=== PATIENT | female | born 1970 | race Caucasian/White ===

== ENCOUNTER 2020-01-01 09:07 | Emergency (ER) | payer MEDICARE, MEDICAID, SELFPAY ==
[2020-01-01] VITALS (7 sets, daily range): BP systolic 119–151; BP diastolic 72–85; PULSE 68–80; RESP 20; TEMP 36.9; O2SAT 98–100
--- NOTE | ~2020-01-01 | XR_ITS ---
EXAMINATION: XR chest 1V portable DATE: 01/01/2020 09:36 INDICATION: Shortness of breath. Chest tightness. TECHNIQUE: A single frontal view of the chest was obtained. COMPARISON: Chest 2 views 05/22/2013 FINDINGS: Calcified right lung nodules are consistent with old granulomatous disease. No pleural effu martínez or pneumothorax. The heart size is normal. IMPRESSION: 1. No acute cardiopulmonary disease. Reviewed, dictated and finalized at location A.
--- NOTE | 2020-01-01 09:17 | ECG_ITS ---
Measurements Intervals [place] Rate: 72 P: 34 FL: 157 QRS: -14 QRSD: 89 T: 42 QT: 365 QTc: 400 Interpretive Statements SINUS RHYTHM BASELINE ARTIFACT- I, II, III, AVF NORMAL ECG Electronically Signed On 01-01-2020 10:14:56 CDT by Stephon Leon D.O.
--- NOTE | 2020-01-01 10:25 | ED.SOB ---
HPI - SOB/Dyspnea General Chief Complaint: Shortness of Breath/Dyspnea Stated Complaint: ST, SOB been exposed to COVID Time Seen by Provider: 01/01/20 09:21 Source: patient Mode of arrival: ambulatory Limitations: no limitations History of Present Illness HPI Narrative: This patient is a 49 year old female who presents for evaluation of chest heaviness and shortness of breath. Patient states yesterday she developed midsternal chest heaviness and shortness of breath. She reports she is feeling short of breath with exertion. She states heaviness is not as severe but she continues to feel it with exertion. She also has sore throat. She is concerned because she has had a COVID exposure. Related Data Allergies Allergy/AdvReac Type Severity Reaction Status Date / Time No Known Allergies Allergy Unverified 03/05/14 18:35 Review of Systems Review of Systems: All systems reviewed & are unremarkable except as noted in HPI and below Constitutional: Constitutional: Denies chills and Denies fever(s) ENT: Reports sore throat Cardiovascular: Cardiovascular: Reports chest pain Respiratory: Respiratory: Denies cough and Reports dyspnea Gastrointestinal: Gastrointestinal: Denies abdominal pain, Denies diarrhea, Denies nausea and Denies vomiting Musculoskeletal: Musculoskeletal: Denies myalgias and Denies muscle cramps PMFSH Past Medical History Medical History (Updated 01/01/20 @ 14:41 by Vaishali Aguilar MD) DVT (deep venous thrombosis) Kidney stone Surgical History Surgical History (Updated 01/01/20 @ 10:31 by Vaishali Aguilar MD) History of carpal tunnel surgery Family History Family History (Updated 04/28/13 @ 11:02 by DOCTOR UNKNOWN) Other Cerebrovascular accident Diabetes mellitus Family history of arthritis Family history of cardiovascular disease Hypertension Social History Social History Smoking status: Never smoker Second hand tobacco smoke exposure: No Alcohol intake: never Gender identity (if verbalized by the patient): Female Exam Narrative: Exam Narrative: GENERAL: Well-appearing, well-nourished, and in no acute distress. HEAD: Normocephalic, atraumatic EYES: PERRLA and EOMI, conjunctiva clear without discharge THROAT:Mucous membranes moist, Oropharynx normal without erythema, exudate, peritonsillar swelling or fluctuance NECK: Supple, without lymphadenopathy or mass RESPIRATORY: No respiratory distress, Airway patent, Respirations non-labored, Clear to auscultation without rales, rhonchi or wheeze HEART: Regular rate and rhythm. No murmur heard. Normal peripheral pulses. ABDOMEN: Soft, nontender, nondistended, normal active bowel sounds. No masses. No rebound or guarding, No organomegaly. EXTREMITIES: No edema, normal strength with full range of motion. SKIN: Warm, dry, normal color without rash NEURO: Alert and oriented x3. CN 2-12 grossly intact. No focal deficits. PSYCH: Normal mood and affect. Course Reevaluation(s) Reevaluation #1: I Discussed with patient that labs are unremarkable. She has been tested for COVId. She is stable for discharge. Heart score of 2. Date: 01/01/20 Time: 14:37 Vital Signs Vital signs: Vital Signs Temperature 98.5 F 01/01/20 09:17 Pulse Rate 70 01/01/20 09:17 Respiratory Rate 20 01/01/20 09:17 Blood Pressure 151/85 H 01/01/20 09:17 Pulse Oximetry 100 01/01/20 09:17 Temperature 98.5 F 01/01/20 09:17 Pulse Rate 71 01/01/20 15:26 Respiratory Rate 20 01/01/20 15:26 Blood Pressure 132/84 01/01/20 15:26 Pulse Oximetry 98 01/01/20 15:26 MDM - SOB/Dyspnea Lab Data Attestation: I reviewed the patient's lab results. Result diagrams: 01/01/20 10:51 01/01/20 10:51 Labs: Lab Results 01/01/20 01/01/20 01/01/20 Range/Units 09:42 10:51 10:51 WBC 3.9 L (4.5-10.0) K/mm3 RBC 4.82 (4.2-5.4) M/mm3 Hgb 9.6 L (12.0-15.0) g/dL Hct 34.0 L
[2020-01-01 11:02] LABS: Basophils Percent Auto 0.3 % (0.2-1.2); Eosinophils Percent Auto 0.8 % (0-4.4); Hemoglobin 9.6 g/dL (12.0-15.0); Immature Granulocyte Absolute 0.01 K/mm3 (0.00-0.031); Immature Granulocyte Percent A 0.3 % (0-0.5); Immature Platelet Fraction Pct 6.4 % (0.9-11.2); Lymphocytes Absolute Auto 0.96 K/mm3 (0.9-3.2); Lymphocytes Percent Auto 24.5 % (18.3-44.2); Mean Corpuscular HGB Conc 28.2 g/dl (32-36); Mean Corpuscular Hemoglobin 19.9 pg (26-34); Mean Corpuscular Volume 70.5 fl (80-100); Monocytes Absolute Auto 0.4 K/mm3 (0.1-0.6); Monocytes Percent Auto 9.4 % (2.6-8.5); Neutrophils Absolute Auto 2.5 K/mm3 (1.3-6.7); Neutrophils Percent Auto 64.7 % (45.5-73.1); Platelet Count Result 171 k/mm3 (150-375); Red Blood Count 4.82 M/mm3 (4.2-5.4); Red Cell Distribution Width 16.7 % (11.5-14.5); White Blood Count 3.9 K/mm3 (4.5-10.0)
[2020-01-01 11:10] LABS: Prothrombin Time 13.3 Seconds (11.1-14.7)
[2020-01-01 11:11] LABS: Partial Thromboplastin Time 23.5 SECONDS (22.3-36.8)
[2020-01-01 11:13] LABS: Anion Gap 9 mmol/L (8-16); Blood Urea Nitrogen 15 mg/dL (7-17); Calcium 8.8 mg/dL (8.4-10.2); Carbon Dioxide 23 mmol/L (22-30); Chloride 106 mmol/L (98-107); Estimated CRCL calculation 90 ml/min; Estimated Glomerular Filt Rate > 60; Glucose 93 mg/dL (65-105); Potassium 4.3 mmol/L (3.4-5.0); Sodium 138 mmol/L (137-145)
[2020-01-01 11:16] LABS: Platelet Estimate Adequate (Adequate)
[2020-01-01 11:17] LABS: Anisocytosis 1+ (NORMAL); Hypochromasia 1+ (NORMAL); Microcytosis 1+ (NORMAL); Ovalocytes 1+ (NORMAL)
[2020-01-01 11:25] LABS: Troponin I < 0.012 ng/mL (0.000-0.034)
[2020-01-01 11:29] LABS: D Dimer 0.27 ug/mL (<0.48)
[2020-01-01 14:23] LABS: Troponin I < 0.012 ng/mL (0.000-0.034)
== END 2020-01-01 15:28 | disposition home or self-care (01) ==
PROVIDERS: Emergency Provider General Practice; PCP Internal Medicine Gastroenterology
DX: R07.89 Other chest pain (principal); Z20.828 Contact with and (suspected) exposure to other viral communicable diseases; Z86.718 Personal history of other venous thrombosis and embolism; Z87.442 Personal history of urinary calculi
CPT/HCPCS: 36415; 71045; 80048; 84484; 85025; 85055; 85380; 85610; 85730; 87081; 87635; 87880; 93005; 99284; C9803; U0003

== ENCOUNTER 2021-02-13 13:47 | Outpatient (CLI) | payer MEDICARE, MEDICAID, SELFPAY ==
--- NOTE | ~2021-02-13 | MR_ITS ---
EXAMINATION: MR brain IAC wo/w con EXAM DATE: 02/13/2021 16:09 INDICATION: G35 . Multiple sclerosis. TECHNIQUE: Multi-sequential, multiplanar MR images of the brain, brainstem, internal auditory canals were obtained without contrast. Whole brain sagittal T1, axial diffusion, gradient echo (T2*), T1, T 2, FLAIR sequences obtained. High resolution coronal 3-D FIESTA, coronal T1 FSE, axial T1 FSPGR of t he internal auditory canals. Patient was then injected with 16 cc Multihance contrast intravenously. Postcontrast axial and coronal T1 weighted whole brain, axial and coronal high resolution T1 IAC seq uences obtained. Comparison is made to prior examination from 06/04/2011. FINDINGS: No evidence of mastoid or middle ear opacification. The 7th/8th cranial nerve complexes a re symmetric, normal in course and caliber. No cerebellopontine angle masses. Posterior fossa unrem arkable. There is empty sella syndrome, CSF subarachnoid space herniating into sella turcica. This was present on previous examination and is unchanged. There is stable appearance, distribution to the approximately 20-30 periventricular and subcortical w ari matter signal abnormalities, some of which involve margins of the corpus callosum and are orient ed perpendicular to the lateral ventricles, consistent with history of multiple sclerosis. No posteri or fossa signal abnormalities. There are no areas of restricted diffusion to suggest acute infarction. There is no acute hemorrhage seen on the T2*, a hemosiderin sensitive sequence. No intraparenchymal brain mass. The ventricles a re normal in size. There are no extra-axial collections. Flow voids are seen in the cerebral arteri es on the T2-weighted sequences consistent with their expected patency. The orbits are unremarkable. Soft tissue is unremarkable. There are no areas of abnormal enhancement on the postcontrast image s. IMPRESSION: Stable white matter disease consistent with quiescent multiple sclerosis. Reviewed, dictated and finalized at location A. IMPRESSION: Stable white matter disease consistent with quiescent multiple scle rosis.
--- NOTE | ~2021-02-13 | MR_ITS ---
EXAMINATION: MR cervical spine wo con EXAM DATE: 02/13/2021 16:10 INDICATION: G35 - Multiple sclerosis . TECHNIQUE: Multi-sequential, multiplanar MR images of the cervical spine were obtained without contra st. Axial T2, axial T2 MERGE sequence. Sagittal T1, T2, T2 fat saturation images also obtained. Com parison is made to prior examination from 04/29/2008. FINDINGS: There are scattered ill-defined T2 spinal cord slightly hyperintense regions without expans ion. These are less well appreciated than on prior study. Spinal cord thickness is maintained, no def inite focal regions of myelomalacia. Findings are consistent with quiescent multiple sclerosis withou t evidence of newly developed lesions compared to 2007. There is mild to moderate spondylosis at C5-6 level, mild to moderate bilateral neural foraminal sten osis and mild central canal stenosis or mildly bulging disc. Less spondylosis at other levels. There are no suspicious marrow signal abnormalities. Paraspinal soft tissue is unremarkable. IMPRESSION: Findings consistent with quiescent multiple sclerosis. Reviewed, dictated and finalized at location A.
--- NOTE | ~2021-02-13 | MR_ITS ---
EXAMINATION: MR thoracic spine wo con EXAM DATE: 02/13/2021 16:10 INDICATION: G35 - Multiple sclerosis TECHNIQUE: Multi-sequential, multiplanar MR images of the thoracic spine were obtained without contra st. Sagittal T1, T2, T2 fat saturation, axial T2 weighted images reviewed. There is no prior study for comparison. FINDINGS: Thoracic spinal cord signal intensity and morphology is normal. There are some small disc p rotrusions and bulges, without central canal or neural foraminal stenosis. There is mild to moderate mid and lower thoracic disc disease. Overall mild diffuse thoracic facet arthropathy. There are scatt ered focal signal abnormalities consistent with hemangiomata, otherwise without focal suspicious juliet ow signal abnormalities. The vertebral bodies are aligned in the AP dimension. Paraspinal soft tissue is unremarkable. IMPRESSION: 1. Mild to moderate thoracic spondylosis. 2. Normal cord signal. Reviewed, dictated and finalized at location A.
[2021-02-13 14:25] LABS: Estimated Glomerular Filt Rate > 60
== END 2021-02-13 13:48 | disposition home or self-care (01) ==
LOC: ANHIMG 13:50
PROVIDERS: PCP Internal Medicine Gastroenterology; Visit Provider Psychiatry & Neurology Neurology
DX: G35 Multiple sclerosis (principal); M47.894 Other spondylosis, thoracic region; R93.0 Abnormal findings on diagnostic imaging of skull and head, not elsewhere classified
CPT/HCPCS: 70553; 72141; 72146; A9577

== ENCOUNTER 2023-09-27 08:26 | Outpatient (CLI) | payer MEDICARE, SELFPAY ==
--- NOTE | ~2023-09-27 | MR_ITS ---
EXAMINATION: MR cervical spine wo/w con DATE: 09/27/2023 10:37 INDICATION: Multiple sclerosis. TECHNIQUE: Magnetic resonance imaging (MRI) of the cervical spine was performed without and with 17 m L MultiHance intravenous contrast. COMPARISON: Cervical spine MRI 02/13/2021 FINDINGS: There is 6 degrees dextrocurvature of the cervicothoracic spine. Vertebral body heights are normal. There is severely decreased disc height at C5-6. There are multiple areas of ill-defined inc reased T2 signal intensity in the cervical spinal cord. The following disc levels are specifically di scussed: C2-C3: The disc does not extend beyond the endplate margin. There is mild left uncovertebral joint os teoarthritis. There is mild right facet joint osteoarthritis. There is mild left neural foraminal denia nosis. There is no central canal stenosis. C3-C4: There is a central extrusion. There is mild bilateral uncovertebral joint osteoarthritis. Ther e is severe bilateral facet joint osteoarthritis. There is mild bilateral neural foraminal stenosis. There is no central canal stenosis. C4-C5: The disc does not extend beyond the endplate margin. There is no uncovertebral joint osteoarth ritis. There is moderate right and severe left facet joint osteoarthritis. There is no neural foramin al stenosis. There is no central canal stenosis. C5-C6: The disc is bulging. There is moderate right and severe left uncovertebral joint osteoarthriti s. There is severe bilateral facet joint osteoarthritis. There is mild right and moderate left neural foraminal stenosis. There is mild central canal stenosis. C6-C7: There is a central extrusion. There is mild bilateral uncovertebral joint osteoarthritis. Ther e is mild bilateral facet joint osteoarthritis. There is no neural foraminal stenosis. There is mild central canal stenosis. C7-T1: The disc does not extend beyond the endplate margin. There is no uncovertebral joint osteoarth ritis. There is mild bilateral facet joint osteoarthritis. There is no neural foraminal stenosis. The re is no central canal stenosis. IMPRESSION: 1. Stable spinal cord lesions, consistent with multiple sclerosis. 2. Severe spondylosis at C5-C6 and mild spondylosis at other levels. Reviewed, dictated and finalized at location E.
--- NOTE | ~2023-09-27 | MR_ITS ---
EXAMINATION: MR thoracic spine wo/w con DATE: 09/27/2023 10:37 INDICATION: Multiple sclerosis. TECHNIQUE: Magnetic resonance imaging (MRI) of the thoracic spine was performed without and with 17 m L MultiHance intravenous contrast. COMPARISON: Thoracic spine MRI 02/13/2021 FINDINGS: There is 7 degrees levocurvature of thoracic spine. There is kyphosis of thoracic spine. Th ere is mild chronic height loss of T5-T11 vertebral bodies. There is mildly decreased disc height at T4-T5, T5-T6, and T6-T7, severely decreased disc height at T7-T8, mildly decreased disc height at T8- T9, and moderately decreased disc height at T9-T10 and T11-T12. At T3-T4, there is a central extrusio n without central canal stenosis. At T8-T9, there is a right central protrusion with mild central can al stenosis. At T9-T10, there is a left central extrusion with mild central canal stenosis and ventra l indentation of the spinal cord. There are multiple areas of ill-defined increased T2-weighted signa l intensity scattered in the thoracic spinal cord. The conus medullaris is at T12-L1. IMPRESSION: 1. Ill-defined spinal cord lesions, stable from 02/13/2021, consistent with multiple sclerosis. 2. Moderate thoracic spondylosis. Reviewed, dictated and finalized at location E. IMPRESSION: 1. Ill-defined spinal cord lesions, stable from 02/13/2021, consistent with mult iple sclerosis. 2. Moderate thoracic spondylosis.
--- NOTE | ~2023-09-27 | MR_ITS ---
EXAMINATION: MR brain/brain stem wo/w con DATE: 09/27/2023 10:37 INDICATION: Multiple sclerosis. TECHNIQUE: Magnetic resonance imaging (MRI) of the brain and brainstem was performed without and with 17 mL MultiHance intravenous contrast. COMPARISON: Brain MRI 02/13/2021 FINDINGS: There are greater than 40 total lesions of increased T2-weighted signal intensity in the br ain. Of these lesions, several are periventricular, cerebral are juxtacortical, and none are infraten torial. None of the lesions enhance. There is an empty sella. There is no intracranial hemorrhage, ac ione infarction, or abnormal intracranial mass lesion. The ventricles are normal in size. The paranasa l sinuses are clear. The orbits are normal. The mastoid air cells are normal. IMPRESSION: 1. Cerebral white matter disease, stable from 02/13/2021, consistent with multiple sclerosis. Reviewed, dictated and finalized at location E. IMPRESSION: 1. Cerebral white matter disease, stable from 02/13/2021, consistent with multip le sclerosis.
== END 2023-09-27 08:27 | disposition home or self-care (01) ==
PROVIDERS: PCP Internal Medicine Gastroenterology; Visit Provider Student in an Organized Health Care Education/Training Program
DX: G35 Multiple sclerosis (principal); M47.894 Other spondylosis, thoracic region; M47.892 Other spondylosis, cervical region; R90.82 White matter disease, unspecified
CPT/HCPCS: 70553; 72156; 72157; A9577

== ENCOUNTER 2024-04-22 13:28 | Outpatient (CLI) | payer MEDICARE, SELFPAY ==
--- NOTE | ~2024-04-22 | XR_ITS ---
Left ankle Technique: AP, oblique, and lateral views were obtained. Clinical History: Pain Findings: No acute fracture or dislocation is seen. Osseous alignment is anatomic. Ankle mortise and other visualized joint spaces are preserved. Soft tissues are otherwise unremarkable. Impression: Unremarkable left ankle. Reviewed, dictated and finalized at location . ATIONS LEADER Impression: Unremarkable left ankle.
== END 2024-04-22 13:29 | disposition home or self-care (01) ==
PROVIDERS: PCP Internal Medicine Gastroenterology; Visit Provider Internal Medicine Gastroenterology
DX: M25.572 Pain in left ankle and joints of left foot (principal)
CPT/HCPCS: 73610

== ENCOUNTER 2024-08-04 13:20 | Emergency (ER) | payer MEDICARE, SELFPAY ==
--- NOTE | ~2024-08-04 | XR_ITS ---
XR finger 2nd LT min 2V Ordering provider: Eddie Pope MD History: . finger lac . Comparison: None. FINDINGS: BONES: No acute fracture or dislocation. JOINT SPACES: Normal. SOFT TISSUES: Normal. IMPRESSION: No acute osseous abnormality. Reviewed, dictated and finalized at location A.
[2024-08-04 13:47] VITALS: BP 183/90; PULSE 78; RESP 16; TEMP 36.4; O2SAT 100
--- OUTSIDE RECORDS SUMMARY | 2024-08-04 14:49 | XMS_ITS | Data Portability ---
Author Organization [facility] Address [address] [place] [address] Care Team Providers Care Host/Hostess Name Role Phone DAO STOREY Primary Care Provider Assessment No assessment recorded. Plan of Treatment Reminders Order Date Submit Date Provider Last Modified By Organization Details Last Modified Time Details Appointments None recorded. Lab TSH, serum or plasma 2020 021 [facility] (Lab), [address] [place], [address], 19:32:49 vitamin D, 25-hydroxy, total, serum 2020 021 [facility] (Lab), [address] [place], [address], 19:32:50 CMP, serum or plasma 2020 021 [facility] (Lab), [address] [place], [address], 19:32:49 CBC w/ auto diff 2020 [facility] (Lab), [address] [place], [address], 1 19:32:48 lipid panel, blood 2020 [facility] (Lab), [address] [place], [address], 1 19:32:48 pap, IG + HR HPV - HPV regardless but if HPV is positive need subtyping 16,18/45 2020 [facility] (Lab), [address], [place], [address], 1 15:40:23 unlisted lab - 17-oh progesteron e, lc/MS/MS 2020 [facility] (Lab), [address], [place], [address], 1 19:32:52 dhea-sulfat e, serum 2020 [facility] (Lab), [address], [place], [address], 1 19:32:48 hormone panel, serum or plasma 2020 [facility] (Lab), [address], [place], [address], 1 19:32:51 HbA1c (hemoglobin A1c), blood 2020 [facility] (Lab), [address], [place], [address], 1 19:32:51 progesteron e, serum 2020 [facility] (Lab), [address], [place], [address], 1 19:32:50 prolactin, serum 2020 [facility] (Lab), [address], [place], [address], 1 19:32:51 shbg (sex hormone-bin ding globulin), serum 2020 [facility] (Lab), [address], [place], [address], 19:32:50 testosteron e free/testos terone total, ratio, serum 2020 [facility] (Lab), [address], [place], [address], 19:32:52 Referral None recorded. Procedures None recorded. Surgeries None recorded. Imaging MAMMO, screening, digital, bilateral 2020 [id number] [facility], [address], [address], [place], [address], 10:47:41 US, pelvis, complete 2020 [id number] [facility], [address], [address], [place], [address], 15:37:30 Medication Orders None recorded. Patient TargetsNo targets recorded. Patient InstructionsNo instructions recorded. Reason for Referral None Reported. Results Created Date Observation Date Name Description Value Unit Range Abnormal Flag Note LastModifiedBy Organization Detail LastModifiedTime 11/07/1911/06/2020 pap, IG + HR HPV image guided Pap, HPV regardless of Pap result SEE RESULT S BELOW CASE REPOR T: Cytol ogy Gynec ologi meghna Repor t Case: [id number] Autho dennis goetz Provi rekha: Aleah Gonzales CNM Colle cted: 11/06 1314 Order ing Locat ion: [place] Path[facility] Recei joshua: 11/07 0010 First Scree n: Jan Arana , CT Rescr een: Beech im, Tessa , CT Speci men: Scree roger Pap - Image d, Cervi x STATE MENT OF ADEQU ACY: Satis facto ry for evalu ation Trans forma tion zone compo nent prese nt FINAL DIAGN OSIS: Negat crys for Intra epith elial Lesio n or Steveharlan garcia (NIL) . Trich reg s jane espinoza prese nt. Elect nilson loya d by Tessa Davis CT on 2020 at 9:35 AM ----- ----- ----- ----- ----- ----- ----- ----- ----- ----- ----- ----- ----- ----- ----- ----- ----- ---- HPV RESUL TS: HPV mRNA E6/E7 : No HPV mRNA Detec heidi NOTE: This high risk HPV mRNA assay detec ts fourt een high- risk HPV types (16, 18, 31, 33, 35, 39, 45, 51, 52, 56, 58, 59, 66, 68) witho ut diffe renti ation . CHART ABLE COMME NT: Note: This speci men was revie wed by a Cytot echno logis t and/o r Patho logis t (as indic ated in this repor t) after evalu ation using the Thinp rep Imagi ng Syste m. CLINI MEGHNA INFOR MATIO N: Menst rual Statu s: LMP (if appli cable ): Clini meghna Histo ry/Pr eviou s Pap: Type of Neopl bk (if appli cable ): Other Histo ry: Hormo lynn (if appli cable ): PAP EDUCA ELSA L NOTE: The Pap Test is a scree roger test with an inher ent false negat crys rate. Liqui d-bas e sampl ing may decre ase, but will not elimi elizabeth, false negat crys resul ts. A negat crys resul t does not precl ude the prese nce and/o r devel opmen t of disea se, since the prese nce of abnor mal cells in the sampl e depen ds on the locat ion of the lesio n and sampl ing techn ique. Rad nued regul ar scree roger is the best metho d of cance r preve ntion . If repor heidi cytol ogic findi ng do not corre late with physi meghna and/o r histo rical findi ngs, myrtle ewing ion is recom lisa d, as clini jessica haines nted. Not Available [facility] (Lab) [address], [place], [address], 11/08/2020 10:37:49 11/07/19 21 11/06/2020 CBC W/DIF F WBC 4.3 10'3/ uL 3.6-10 .2 Not Available [facility] (Lab) [address], [place], [address], 11/12/2020 19:32:48 11/07/19 21 11/06/2020 CBC W/DIF F RBC 4.90 10'6/ uL (based on docume nted legal sex) 4.10-5 .30 Not Available [facility] (Lab) [address], [place], [address], 11/12/2020 19:32:48 11/07/19 21 11/06/2020 CBC W/DIF F HGB 11.2 g/dL (based on docume nted legal sex) 11.9-1 5.8 low Not Available [facility] (Lab) [address], [place], [address], 11/12/2020 19:32:48 11/07/19 21 11/06/2020 CBC W/DIF F HCT 39.5 % (based on docume nted legal sex) 37.4-4 8.3 Not Available [facility] (Lab) [address], [place], [address], 11/12/2020 19:32:48 11/07/19 21 11/06/2020 CBC W/DIF F MCV 81.0 fL 82.0-9 9.0 low Not Available [facility] (Lab) [address] [place], [address], 11/12/2020 19:32:48 11/07/19 21 11/06/2020 CBC W/DIF F MCH 23.0 pg 27.0-3 3.0 low Not Available [facility] (Lab) [address], [place], [address], 11/12/2020 19:32:48 11/07/19 21 11/06/2020 CBC W/DIF F MCHC 28.0 g/dL 32.0-3 6.0 low Not Available [facility] (Lab) [address], [place], [address], 11/12/2020 19:32:48 11/07/19 21 11/06/2020 CBC W/DIF F RDW 17.0 % 11.0-1 5.0 high Not Available [facility] (Lab) [address], [place], [address], 11/12/2020 19:32:48 11/07/19 21 11/06/2020 CBC W/DIF F plt 164 10'3/ uL 150-45 0 Not Available [facility] (Lab) [address], [place], [address], 11/12/2020 19:32:48 11/07/19 21 11/06/2020 CBC W/DIF F MPV 12.6 fL Not Available [facility] (Lab) [address], [place], [address], 11/12/2020 19:32:48 11/07/19 21 11/06/2020 CBC W/DIF F NRBC's 0.00 % 0 Not Available [facility] (Lab) [address], [place], [address], 11/12/2020 19:32:48 11/07/19 21 11/06/2020 CBC W/DIF F absolute NRBCs 0.0 10'3/ uL 0 Not Available [facility] (Lab) [address] [place], [address], 11/12/2020 19:32:48 11/07/19 21 11/06/2020 CBC W/DIF F neutrophils 59.0 % 37.0-7 2.0 Not Available [facility] (Lab) [address], [place], [address], 11/12/2020 19:32:48 11/07/19 21 11/06/2020 CBC W/DIF F lymphocytes 27.0 % 16.0-4 8.0 Not Available [facility] (Lab) [address], [place], [address], 11/12/2020 19:32:48 11/07/19 21 11/06/2020 CBC W/DIF F monocytes 9.0 % 4.0-14 .0 Not Available [facility] (Lab) [address], [place], [address], 11/12/2020 19:32:48 11/07/19 21 11/06/2020 CBC W/DIF F eosinophils 4.0 % 0.0-9. 0 Not Available [facility] (Lab) [address], [place], [address], 11/12/2020 19:32:48 11/07/19 21 11/06/2020 CBC W/DIF F basophils 1.0 % 0.0-2. 0 Not Available [facility] (Lab) [address] [place], [address], 11/12/2020 19:32:48 11/07/19 21 11/06/2020 CBC W/DIF F immature granulocytes 0.0 % no define d refere nce range Not Available [facility] (Lab) [address] [place], [address], 11/12/2020 19:32:48 11/07/19 21 11/06/2020 CBC W/DIF F absolute neutrophils 2.6 10'3/ uL 1.1-6. 0 Not Available [facility] (Lab) [address] [place], [address], 11/12/2020 19:32:48 11/07/19 21 11/06/2020 CBC W/DIF F absolute lymphocytes 1.2 10'3/ uL 0.7-3. 4 Not Available [facility] (Lab) [address], [place], [address], 11/12/2020 19:32:48 11/07/19 21 11/06/2020 CBC W/DIF F absolute monocytes 0.4 10'3/ uL 0.3-1. 0 Not Available [facility] (Lab) [address], [place], [address], 11/12/2020 19:32:48 11/07/19 21 11/06/2020 CBC W/DIF F absolute eosinophils 0.2 10'3/ uL 0.0-0. 6 Not Available [facility] (Lab) [address], [place], [address], 11/12/2020 19:32:48 11/07/19 21 11/06/2020 CBC W/DIF F absolute basophils 0.0 10'3/ uL 0.0-0. 1 Not Available [facility] (Lab) [address], [place], [address], 11/12/2020 19:32:48 11/07/19 21 11/06/2020 CBC W/DIF F absolute immature granulocytes 0.00 10'3/ uL 0.00-0 .10 2020 12:31 AM: P indic ates parti al resul ts on a panel have been relea sed. Addit ional resul ts will follo w. 2020 12:31 AM: This resul t has been final verif ied. No addit ional or jackson ed resul ts are expec heidi. Not Available [facility] (Lab) [address], [place], [address], 11/12/2020 19:32:48 11/07/19 21 11/06/2020 DHEA SULFA TE DHEA-sulfate 85 ug/dL Femal e Range s Age(y ) Range (ug/d L) 10-15 34-28 0 15-20 65-36 8 20-25 148-4 07 25-35 99-34 0 35-45 61-33 7 45-55 35-25 6 55-65 19-20 5 65-75 9-246 > 75 12-15 4 Not Available [facility] (Lab) [address] [place], [address], 11/12/2020 19:32:48 11/07/19 21 11/06/2020 LIPID PANEL ,AMA (LDL- CALC) total cholesterol 217 mg/dL 0-199 high Not Available [facility] (Lab) [address] [place], [address], 11/12/2020 19:32:48 11/07/19 21 11/06/2020 LIPID PANEL ,AMA (LDL- CALC) triglyceride s 118 mg/dL 0.00-1 50.00 NCEP Refer ence Value s for Trigl yceri gordy: Vanesa l: <150 mg/dL Borde rline High: 150 - 199 mg/dL High: 200 - 499 mg/dL Very High: >/= 500 mg/dL Not Available [facility] (Lab) [address] [place], [address], 11/12/2020 19:32:48 11/07/19 21 11/06/2020 LIPID PANEL ,AMA (LDL- CALC) HDL cholesterol 48 mg/dL 23-92 Not Available [facility] (Lab) [address] [place], [address], 11/12/2020 19:32:48 11/07/19 21 11/06/2020 LIPID PANEL ,AMA (LDL- CALC) LDL cholesterol 145 mg/dL 0-99 high Cutof f value s recom lisa d by the Natio nal Delia stero l Educa tion Progr am: LOUIE ABLE: Delia stero l <200 mg/dL LDL <100 mg/dL BORDE RLINE : Delia stero l 200-2 39 mg/dL LDL 101-1 59 mg/dL HIGHE R RISK: Delia stero l >240 mg/dL LDL >160 mg/dL , HDL <40 mg/dL Not Available [facility] (Lab) [address] [place], [address], 11/12/2020 19:32:48 11/07/19 21 11/06/2020 LIPID PANEL ,AMA (LDL- CALC) non-HDL cholesterol 169 mg/dL no refere nce range A reaso nable goal for non-H DL delia stero l is one that is 30 mg/dL highe r than the LDL delia stero l goal. Not Available [facility] (Lab) [address], [place], [address], 11/12/2020 19:32:48 11/07/19 21 11/06/2020 LIPID PANEL ,AMA (LDL- CALC) chol/HDL ratio 4.5 . 0.0-5. 0 Not Available [facility] (Lab) [address], [place], [address], 11/12/2020 19:32:48 11/07/19 21 11/06/2020 CMP(C OMPRE HENSI VE METAB OLIC PANEL ) sodium 140 mmol/ L 136-14 5 Not Available [facility] (Lab) [address] [place], [address], 11/12/2020 19:32:49 11/07/19 21 11/06/2020 CMP(C OMPRE HENSI VE METAB OLIC PANEL ) potassium 3.9 mmol/ L 3.5-5. 1 Not Available [facility] (Lab) [address] [place], [address], 11/12/2020 19:32:49 11/07/19 21 11/06/2020 CMP(C OMPRE HENSI VE METAB OLIC PANEL ) chloride 105 mmol/ L 98-107 Not Available [facility] (Lab) [address] [place], [address], 11/12/2020 19:32:49 11/07/19 21 11/06/2020 CMP(C OMPRE HENSI VE METAB OLIC PANEL ) carbon dioxide 26 mmol/ L 21- Not Available [facility] (Lab) [address], [place], [address], 11/12/2020 19:32:49 11/07/19 21 11/06/2020 CMP(C OMPRE HENSI VE METAB OLIC PANEL ) anion gap 9 mmol/ L 4-13 Not Available [facility] (Lab) [address], [place], [address], 11/12/2020 19:32:49 11/07/19 21 11/06/2020 CMP(C OMPRE HENSI VE METAB OLIC PANEL ) blood urea nitrogen 17 mg/dL 7-25 Not Available [facility] (Lab) [address], [place], [address], 11/12/2020 19:32:49 11/07/19 21 11/06/2020 CMP(C OMPRE HENSI VE METAB OLIC PANEL ) creatinine 0.87 mg/dL 0.60-1 .30 Not Available [facility] (Lab) [address], [place], [address], 11/12/2020 19:32:49 11/07/19 21 11/06/2020 CMP(C OMPRE HENSI VE METAB OLIC PANEL ) GFR () 84 mL/mi n/1.7 3_m2 60-300 Not Available [facility] (Lab) [address], [place], [address], 11/12/2020 19:32:49 11/07/19 21 11/06/2020 CMP(C OMPRE HENSI VE METAB OLIC PANEL ) GFR (others) 69 mL/mi n/1.7 3_m2 60-300 Not Available [facility] (Lab) [address], [place], [address], 11/12/2020 19:32:49 11/07/19 21 11/06/2020 CMP(C OMPRE HENSI VE METAB OLIC PANEL ) calcium 8.9 mg/dL 8.6-10 .2 Not Available [facility] (Lab) [address], [place], [address], 11/12/2020 19:32:49 11/07/19 21 11/06/2020 CMP(C OMPRE HENSI VE METAB OLIC PANEL ) glucose 84 mg/dL 70-100 Not Available [facility] (Lab) [address], [place], [address], 11/12/2020 19:32:49 11/07/19 21 11/06/2020 CMP(C OMPRE HENSI VE METAB OLIC PANEL ) protein, total 7.2 g/dL 6.4-8. 3 Not Available [facility] (Lab) [address], [place], [address], 11/12/2020 19:32:49 11/07/19 21 11/06/2020 CMP(C OMPRE HENSI VE METAB OLIC PANEL ) albumin 4.3 g/dL 3.5-5. 0 Not Available [facility] (Lab) [address], [place], [address], 11/12/2020 19:32:49 11/07/19 21 11/06/2020 CMP(C OMPRE HENSI VE METAB OLIC PANEL ) ALT 10 units /L 9-43 Not Available [facility] (Lab) [address], [place], [address], 11/12/2020 19:32:49 11/07/19 21 11/06/2020 CMP(C OMPRE HENSI VE METAB OLIC PANEL ) alkaline phosphatase 45 units /L 34-104 Not Available [facility] (Lab) [address], [place], [address], 11/12/2020 19:32:49 11/07/19 21 11/06/2020 CMP(C OMPRE HENSI VE METAB OLIC PANEL ) AST 14 units /L 13-39 Not Available [facility] (Lab) [address] [place], [address], 11/12/2020 19:32:49 11/07/19 21 11/06/2020 CMP(C OMPRE HENSI VE METAB OLIC PANEL ) bilirubin, total 0.4 mg/dL 0.2-1. 2 Not Available [facility] (Lab) [address] [place], [address], 11/12/2020 19:32:49 11/07/19 21 11/06/2020 TSH TSH 0.67 uIU/m L 0.30-5 .33 Not Available [facility] (Lab) [address], [place], [address], 11/12/2020 19:32:49 11/07/19 21 11/06/2020 HUMAN SEX HORMO NE MAYNOR NG GLOBU TIEN sex hormone binding globulin 59.0 nmole s/L 16.8-1 25.2 Not Available [facility] (Lab) [address] [place], [address], 11/12/2020 19:32:49 11/07/19 21 11/06/2020 VITAM IN D, 25-OH (TOTA L D2/D3 ) vitamin D, 25-hydroxy, total 52.5 NG/mL 30-80 NOTE: Defic iency : <20 ng/mL Insuf ficie ncy: 20-29 ng/mL Optim um Level : 30-80 ng/mL Possi ble Toxic ity: >80 ng/mL Most patie nts with toxic ity have level s >150 ng/mL . Not Available [facility] (Lab) [address] [place], [address], 11/12/2020 19:32:50 11/07/19 21 11/06/2020 PROGE STERO NE progesterone 0.07 NG/mL 0.05-< 60.00 This assay was perfo rmed using [employer] ratio n reage nts and test kits. Value s obtai katharine with other assay metho ds or kits canno t be used inter [facility] . Femal e Proge stero ne Range s: Folli cular phase 0.06- 0.89 ng/mL Ovula tion phase 0.12- 12.00 ng/mL Lutea l phase 1.83- 23.90 ng/mL Postm enopa usal< 0.05- 0.13 ng/mL Healt hy Pregn ant Women 1st Trime ster1 1.0-4 4.30 2nd Trime ster2 5.40- 83.30 3rd Trime ster5 8.70- 214.0 0 Not Available [facility] (Lab) [address] [place], [address], 11/12/2020 19:32:50 11/07/19 21 11/06/2020 PROLA CTIN prolactin, total 14.60 NG/mL 4.79-2 3.30 This assay was perfo rmed using [employer] reage nts and test kits. Value s obtai katharine with other assay metho ds or kits canno t be used inter [facility] . Not Available [facility] (Lab) [address], [place], [address], 11/12/2020 19:32:50 11/07/19 21 11/06/2020 FSH, LH, ESTRA DIOL estradiol 9.2 pg/mL This assay was perfo rmed using [employer] reage nts and test kits. Value s obtai katharine with other assay metho ds or kits canno t be used inter [facility] . Femal e Estra diol Range s: Folli cular phase 12.4- 233 pg/mL Ovula tion phase 41.0- 398 pg/mL Lutea l phase 22.3- 341 pg/mL Postm enopa usal< 5-138 pg/mL Healt hy Pregn ant Women 1st Trime ster1 54-32 43 pg/mL 2nd Trime ster1 561-2 1280 pg/mL 3rd Trime ster8 525-> 58756 pg/mL Not Available [facility] (Lab) [address], [place], [address], 11/12/2020 19:32:51 11/07/1911/06/2020 FSH, LH, ESTRA DIOL FSH 46.7 mIU/m L This assay was perfo rmed using [employer] ratio n reage nts and test kits. Value s obtai katharine with other assay metho ds or kits canno t be used [facility] . Femal es Folli cular : 3.5-1 2.5 mIU/m L Ovula tion: 4.7-2 1.5 mIU/m L Lutea l: 1.7-7 .7 mIU/m L Postm enopa use: 25.8- 134.8 mIU/m L Not Available [facility] (Lab) [address], [place], [address], 11/12/2020 19:32:51 11/07/19 21 11/06/2020 FSH, LH, ESTRA DIOL LH 33.5 mIU/m L This assay was perfo rmed using [employer] reage nts and test kits. Value s obtai katharine with other assay metho ds or kits canno t be used inter [facility] . Femal es Mid-F ollic ular: 2.4-1 2.6 mIU/m L Mid-C ycle: 14.0- 95.6 mIU/m L Mid-L uteal : 1.0-1 1.4 mIU/m L Postm enopa use: 7.7-5 8.5 mIU/m L Not Available [facility] (Lab) [address], [place], [address], 11/12/2020 19:32:51 11/07/1911/06/2020 HEMOG LOBIN A1C hemoglobin A1C 5.2 % 0-5.6 The Ameri can [employer] iatio n recom mends that a prima ry goal of therlaverne steele be a HBA1C of < 7% and that physi cians shoul d reeva luate the treat ment regim en in patie nts with HBA1C value s consi stent ly > 8%. <5.7% Vanesa l 5.7 - 6.4% Incre ased risk for diabe camacho >=6.5 % Diagn ostic of diabe camacho <7.0% Goal of thera py >8.0% Actbrittney hu sted Not Available [facility] (Lab) [address], [place], [address], 11/12/2020 19:32:51 11/07/1911/06/2020 TESTO STERO NE, FREE( DIALY SIS) AND TOTAL (LC/M S/MS) testosterone , total 28 NG/dL 2-45 For addit ional infor erica gambino e refer to http: //[facility] dixie gimenez.que stdia gnost ics.c om/fa q/Tot al Testo stero neLCM SMS (This link is being provi ded for infor anita nal/e ducat ional purpo ses only. ) This test was devel oped and its herman tical perfo rmanc e marquise cteri stics have been deter mined by [facility]. It has not been clear ed or appro joshua by the FDA. This assay has been valid ated pursu ant to the CLIA regul ation s and is used for clini meghna purpo ses. Not Available [facility] (Lab) [address] [place], [address], 11/12/2020 19:32:52 11/07/1911/06/2020 TESTO STERO NE, FREE( DIALY SIS) AND TOTAL (LC/M S/MS) testosterone , free 3.3 pg/mL 0.1-6. 4 This test was devel oped and its herman tical perfo rmanc e marquise cteri stics have been deter mined by [facility]. It has not been clear ed or appro joshua by the FDA. This assay has been valid ated pursu ant to the CLIA regul ation s and is used for clini meghna purpo ses. Perfo rming Organ izati on Infor matio n: Site ID: [id number] Name: [facility] [facility] Addre ss: [id number] [place] [address] Direc tor: Basim alcaraz M.D. Not Available [facility] (Lab) [address], [place], [address], 11/12/2020 19:32:52 11/07/19 21 11/06/2020 17-OH PROGE STERO NE 17-hydroxypr ogesterone, lc/MS/MS 17 NG/dL Adult Femal e Refer ence Range s for 17-Hy droxy proge stero ne: Pre-M enopa usal Mid Folli cular : 23-10 2 ng/dL Pre-M enopa usal Surge : 67-34 9 ng/dL Pre-M enopa usal Mid Lutea l: 139-4 31 ng/dL Postm enopa usal Phase : < or = 45 ng/dL Pregn ken: First Trime ster: 78-45 7 ng/dL Secon d Trime ster: 90-35 7 ng/dL Third Trime ster: 144-5 78 ng/dL This test was devel oped and its herman tical perfo rmanc e marquise cteri stics have been deter mined by [facility] [employer] [employer] [facility] . It has not been clear ed or appro joshua by FDA. This assay has been valid ated pursu ant to the CLIA regul ation s and is used for clini meghna purpo ses. Perfo rming Organ izati on Infor matio n: Site ID: [id number] Name: [facility] [facility] [place] , Addre ss: [id number] [place] [address] Direc tor: Marlene yadav MD,Ph D,MIKO Not Available [facility] (Lab) [address], [place], [address], 11/12/2020 19:32:52 Result Notes None recorded. Procedures Surgical History Date Name Laterality Status Provider Name and Address Organization Details Recorded Time 3 Date of Last Mammogram completed [facility] 11/06/2020 10:55:39 3 completed [facility] 11/06/2020 10:56:39 3 Carpal tunnel surgery completed [facility] 11/06/2020 11:00:30 5 Date of Last Pap Smear completed [facility] 11/06/2020 10:54:49 Imaging Results None recorded. Procedure Notes None recorded. Medical Equipment None Reported. Allergies No known drug allergies Medications Name Sig Start Date Stop Date Status Note LastModified by Organization Details LastModified Time cetirizine 10 mg tablet TAKE 1 TABLET BY MOUTH EVERY DAY 11/06 completed Not Available Not Available Not Available metronidazol e 500 mg tablet TAKE ALL 4 TABLETS BY MOUTH AT ONCE active Not Available Not Available No t Available hydrocodone 10 mg-acetamino phen 325 mg tablet TAKE 1 TABLET BY MOUTH THREE TIMES DAILY NEEDED active Not Available Not Available No t Available trazodone 100 mg tablet TK 1 T PO D HS 11/06 completed Not Available Not Available Not Available baclofen 10 mg tablet TAKE 1 TABLET BY MOUTH TWICE DAILY active Not Available Not Available No t Available trazodone 150 mg tablet TAKE 1 TABLET BY MOUTH AT BEDTIME active Not Available Not Available No t Available fluticasone propionate 50 mcg/actuatio n nasal spray,suspen martínez SHAKE LIQUID AND USE 2 SPRAYS IN EACH NOSTRIL DAILY 11/06 completed Not Available Not Available Not Available Avonex 30 mcg/0.5 mL intramuscula r syringe kit INJECT UNDER THE SKIN ONCE WEEKLY active Not Available Not Available No t Available pregabalin 50 mg capsule TAKE 1 CAPSULE BY MOUTH TWICE DAILY 11/06 completed Not Available Not Available Not Available trazodone 11/06 completed Not Available Not Available Not Available Avonex 11/06 completed Not Available Not Available Not Available Hydrocodone 06/21 /2021 completed Not Available Not Available Not Available Lyrica active Not Available Not Availa ble Not Available Vitals Date Recorded Body height Body mass index (BMI) Body weight Systolic blood pressure Diastolic blood pressure Systolic blood pressure Diastolic blood pressure Provider Name and Address Organization Details Last Updated DateTime 170.18 cm 28.7 kg/m2 23057.4 g 147 mm[Hg] 87 mm[Hg] 149 mm[Hg] 87 mm[Hg] Aleah Jamesan [facility] 10:52:52 Social History Question Answer Notes LastModified by Organizat ion Details LastModified Time Tobacco Smoking Status Never Smoker Aleahbradley Paez [facility] 11/06/2020 10:59:56 What Is Your Level Of Alcohol Consumption? None Information not available 11/06/2020 Are You Blind Or Do You Have Difficulty Seeing? No [email or web address] Information not available 11/06/2020 What Is Your Level Of Caffeine Consumption? Occasional [email or web address] Information not available 11/06/2020 Are You Deaf Or Do You Have Serious Difficulty Hearing? No [email or web address] Information not available 11/06/2020 How Many Days Of Moderate To Strenuous Exercise, Like A Brisk Walk, Did You Do In The Last 7 Days? 7 [email or web address] Information not available 11/06/2020 Sex: Unknown Functional Status Question Answer Note LastModified by Organization D etails LastModified Time Are you able to walk? YESWOREST [email or web address] Information not available 11/06/2020 What is your exercise level? Moderate [email or web address] Information not available 11/06/2020 Mental Status None recorded. Family History Relationship Description Onset Age of this Age Resolved Age Notes LastModified by Organization Details LastModified Time Father Hyperlipidem ia [email or web address] Not available 2020 10:57:57 Father Hypertensive disorder [email or web address] Not available 2020 10:58:20 Paternal Grandmother Heart disease [email or web address] Not available 2020 10:58:47 Paternal Grandfather Hypertensive disorder [email or web address] Not available 2020 10:59:12 Paternal Aunt Diabetes mellitus [email or web address] Not available 2020 10:59:27 Medical History Condition Response Other Y Gynecological History Statement/Question Response Date of Last Mammogram 05/19/2002 Date of LMP 10/30/2020 Current Control Method None 14 05/19/2002 Sexually Active? Y Age of first menstrual cycle 14 Date of Last Pap Smear 01/17/1995 Sexual Problems? N Desired Control Method BCPs LMP Approximate Obstetrics History GPAL:G 2 P 2 0 0 2 Type Value Full Term 2 Living 2 Total 2 Past Encounters Encounter ID Performer Location Encounter Start Date Encounter Closed Date Diagnosis/Indication Diagnosis SNOMED-CT Code Diagnosis ICD10 Code Diagnosis Note [id number] Aleah Borrero [place] [address] [address] 11/06/2020 10:23:16 11/07/2020 15:38:28 Abnormal uterine bleeding [id number] 9100 N93.9 Discussed possible causes of abnormal bleeding and that treatment would be discussed at follow up visit along with lab and u/s. Did briefly discuss possible emb. Pt will schedule follow up prior to leaving today. Gynecologi c examination 20202102 Z01.419 Z11.51 Take Calcium with Vitamin D 12-1500mg daily. Do monthly self breast exams. It is advised to get annual flu shot in the fall and she could obtain at [facility] or [facility] care clinic. If you haven't received the Tdap vaccine in the last 10 years you should obtain one as well. Have mammogram yearly, bone density every 2-3 years and colonoscop y every 5-10 years depending on findings and history. Initially declined mammogram but did take the order and is considerin g. Engage in daily exercise of low impact aerobic exercise 45-60 minutes 4-5 times weekly. Avoid tobacco and illicit drugs as well as using moderation with alcohol intake less than 1-2 8 oz beverages daily. This lifestyle behavior pattern will lead to less health conditions and longer life span. If BMI greater than 25 weight watchers or dietary consult advised. Questions have been answered. Patient appears to understand instructio ns, but if you have any further questions call or respond to this email. After visit lab notified me that *Pt declined labs that she would have to sign a abn for* Health Concerns Section Related Observation LastModified by Organization Detai ls LastModified Time None Recorded Concern Status LastModified by Organization Details LastModified Time None Recorded Advance Directives Directive None Recorded Payers Encounter Date Sequence Insurance Name Policy Number Policy Morales Covered Member ID Morales Member ID Guarantor Name 11/06/2020 1 MEDICARE-[place] (MEDICARE) Gabby Tan [id number] Gabby Tan 11/06/2020 2 MEDICAID-[place]: [facility] Gabby Tan [id number] Gabby Tan Notes Date Note Type Note Provider Name and Address Organization Details Recorded Time 11/06/2020 text/html Annual GYNReport ed bypatient.Menstrua l cycle:See note Urinary symptoms:No hematuria; No incontinence Vulva:No genital lesion Vagina:Normal vaginal discharge Breast:No breast pain; No breast lump; No nipple discharge Sexual complaints:No sexual complaints; No pain during intercourse; Normal libido Menopausal Symptoms:No menopausal symptoms; Normal vaginal lubrication Psychological symptoms:No depression; No anxiety; No PMDD Cycles every 2 weeks for 4 months. Lasts 4-7 days. Flow is light. No cramping. Prior to that cycles were monthly and normal. Aleah Borrero [facility] 11/14/2020 20:17:03 OBGyn Episode Ob Episode Information Episode Created Date Number of Fetuses Patient Bloodtype Patient rh Status Prepregnancy Weight lbs Domestic Partner Domestic Partner Phone Father Name Industrial Robotics Mechanic Status 11/07/19 21 1 CLOSED Fetus Data First Name Last Name Admitted to NICU Weight (g) Sex Living Outcome Pediatric Complications Fetus ID Race Codes Race Delivery Type [phone] [id number] F Full Term [id number] Vaginal Delivery Vickey Calculation Initial Vickey Date Initial Exam Date Initial Exam Provider Initial Ultrasound Date Last Menstrual Period Date Ultra Sound Weeks Gestation 0 Eighteen To Twenty Week Vickey Update Ultra Sound Date Fundal Height At Umbil Quickening Date Ultra Sound Latest Weeks Gestation Final Vickey Confirmed By Final Vickey Confirmed Date Final Vickey Date Ultra Sound Latest Days Gestation 0 0 Menstrual History Last Menstrual Date Menses Monthly On Bcp Conception Prior Menses Frequency Hcg Plus Date Menarche Onset Age Delivery Information Delivery Date Delivery Type Labor Anesthesia Weeks Gestation Incision Type Labor Labor Length Hrs Delivered By Post Complications Tubal Sterilization Discharge Date Comments 5 Discharge Information Feeding Method Contraceptive Method Maternal HG B and HCT Levels Ob Episode Information Episode Created Date Number of Fetuses Patient Bloodtype Patient rh Status Prepregnancy Weight lbs Domestic Partner Domestic Partner Phone Father Name Industrial Robotics Mechanic Status 11/07/19 21 1 CLOSED Fetus Data First Name Last Name Admitted to NICU Weight (g) Sex Living Outcome Pediatric Complications Fetus ID Race Codes Race Delivery Type [id number] F Full Term [id number] Vaginal Delivery Vickey Calculation Initial Vickey Date Initial Exam Date Initial Exam Provider Initial Ultrasound Date Last Menstrual Period Date Ultra Sound Weeks Gestation 0 Eighteen To Twenty Week Vickey Update Ultra Sound Date Fundal Height At Umbil Quickening Date Ultra Sound Latest Weeks Gestation Final Vickey Confirmed By Final Vickey Confirmed Date Final Vickey Date Ultra Sound Latest Days Gestation 0 0 Menstrual History Last Menstrual Date Menses Monthly On Bcp Conception Prior Menses Frequency Hcg Plus Date Menarche Onset Age Delivery Information Delivery Date Delivery Type Labor Anesthesia Weeks Gestation Incision Type Labor Labor Length Hrs Delivered By Post Complications Tubal Sterilization Discharge Date Comments 3 Discharge Information Feeding Method Contraceptive Method Maternal HG B and HCT Levels
--- OUTSIDE RECORDS SUMMARY | 2024-08-04 14:50 | XMS_ITS | Data Portability ---
Author Organization [facility] SOLAJudith Lobato Address [address] [place] [address] Care Team Providers Care [employer] Name Role Phone RAFAEL STOREY Primary Care Provider [phone] Assessment No assessment recorded. Plan of Treatment Reminders Order Date Submit Date Provider Last Modified By Organization Details Last Modified Time Details Appointments ANY 15 2024 09:15A M Rafael Storey MD Not available Not available Not available Lab CBC 2023 024 [facility], [address] [place] [address], [address], [place], [address], 04/22/2024 07:18:22 lipid panel, serum 2023 024 [facility], [address] [facility], [address], [place], [address], 04/22/2024 07:18:18 CMP, serum or plasma 2023 024 [facility], [address] [facility], [address], [place], [address], 04/22/2024 07:18:20 HbA1c (hemogl obin A1c), blood 2023 024 [facility], [address] [facility], [address], [place], [address], 04/22/2024 07:18:21 vitamin D, 25-hydr oxy, total, serum 2023 024 [facility], [address], [address], [place], [address], 04/22/2024 07:18:24 drug screen, 14 drugs (detect imed), urine 2023 024 [facility], [facility] [address], [address], [place], [address], 09/18/2023 17:10:35 CBC 2023 024 [facility] ESPARZADEBOR[facility], [facility], [address], [place], [address], 09/11/2023 09:14:50 lipid panel, serum 2023 024 [facility], [facility] [address], [address], [place], [address], 09/11/2023 09:14:48 CMP, serum or plasma 2023 024 [facility] ESP[facility]EB[facility], [facility] [address], [address], [place], [address], 09/11/2023 09:14:49 HbA1c (hemogl obin A1c), blood 2023 024 [facility], [facility] [address], [address], [place], [address], 09/11/2023 09:14:49 vitamin D, 25-hydr oxy, total, serum 2023 024 [facility], [address], [address], [place], [address], 09/11/2023 09:14:51 Referral dermato logist referra l [id number] [facility]ician Referral Management, [address], [address], [place], [address], 04/21/2024 10:11:48 Procedures None recorde d. Surgeries None recorde d. Imaging None recorde d. Medication Orders losarta n 25 mg tablet 2023 [facility] #[id number], [address], [place], [place], [id number], 04/21/2024 10:46:07 zolpide m 5 mg tablet 2023 [facility]71669, [address], [place], [place], [id number], 04/21/2024 10:46:13 hydroco done 10 mg-acet aminoph en 325 mg tablet 2023 [facility] #06869, [address], [place], [place], [id number], 04/21/2024 10:46:06 prednis one 20 mg tablet 2023 [facility], [address] [place] [address], [id number], 04/22/2024 09:31:20 flutica sone propion ate 50 mcg/act uation nasal spray,s uspensi on 2023 [facility] #80140, [address], [place], [place], [id number], 09/10/2023 10:32:06 hydroco done 10 mg-acet aminoph en 325 mg tablet 2023 [facility] #81856, [address], [place], [place], [id number], 08/05/2023 11:10:29 neomyci n-polym yxin-hy drocort 3.5 mg-10,0 00 unit/mL -1 % ear drops,s mcfp 2023 [facility] #48272, [address] , [place], [place], [id number], 04/21/2024 10:06:49 triamci nolone acetoni de 0.1 % topical cream 2023 [facility] #66496, [address] , [place], [place], [id number], 06/11/2023 11:58:37 hydroco done 10 mg-acet aminoph en 325 mg tablet 2023 [facility] #81899, [address] [place], [id number], 06/11/2023 11:57:16 Patient TargetsNo targets recorded. Patient Instructions Encounter Date Encounter Id Patient Instructions Last Modified By Organization Details Last Modified Time 06/11/2023 [id number] A healthy lifestyle: care instructions Not available 06/11/2023 11:56:55 08/05/2023 [id number] A healthy lifestyle: care instructions [email or web address] Not available 08/05/2023 11:09:57 high cholesterol : care instructions [email or web address] Not available 08/05/2023 11:09:58 09/10/2023 [id number] back care and preventing injuries: care instructions [email or web address] Not available 09/10/2023 10:29:58 sciatica: care instructions Not available 09/10/2023 10:29:58 anemia: care instructions [email or web address] Not available 09/10/2023 10:29:58 high cholesterol : care instructions [email or web address] Not available 09/10/2023 10:29:58 multiple sclerosis (MS): care instructions [email or web address] Not available 09/10/2023 10:29:58 A healthy lifestyle: care instructions [email or web address] Not available 09/10/2023 10:29:58 01/22/2024 [id number] rash: care instructions [email or web address] Not available 01/22/2024 11:57:00 04/21/2024 [id number] insomnia: care instructions [email or web address] Not available 04/21/2024 10:45:59 anemia: care instructions [email or web address] Not available 04/21/2024 10:45:59 high cholesterol : care instructions Not available 04/21/2024 10:46:00 multiple sclerosis (MS): care instructions [email or web address] Not available 04/21/2024 10:45:59 When You Want to Lose Weight: Care Instructions [email or web address] Not available 04/21/2024 10:45:59 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 Contact dermatitis unresponsive to medrol treatment Referring Physician: Rafael Storey, Internal Medicine, Encounter Date: 01/22/2024 Results Created Date Observation Date Name Description Value Unit Range Abnormal Flag Note LastModifiedBy Organization Detail LastModifiedTime 09/10/19 24 09/11/2023 LIPID PANEL cholesterol, total 223 mg/dL 100-19 9 above high normal Not Available [facility] ([facility]) [address] [place], [address], 09/11/2023 09:14:48 09/10/19 24 09/11/2023 LIPID PANEL triglyceride s 111 mg/dL 0-149 Not Available [facility] ([facility]) [address] [place], [address], 09/11/2023 09:14:48 09/10/19 24 09/11/2023 LIPID PANEL HDL cholesterol 51 mg/dL >39 Not Available [facility] ([facility]) [address] [place], [address], 09/11/2023 09:14:48 09/10/19 24 09/11/2023 LIPID PANEL VLDL cholesterol meghna 20 mg/dL 5-40 Not Available [facility] ([facility]) [address] [place], [address], 09/11/2023 09:14:48 09/10/19 24 09/11/2023 LIPID PANEL LDL chol calc ([facility]) 152 mg/dL 0-99 above high normal Not Available [facility] ([facility]) [address] [place], [address], 09/11/2023 09:14:48 09/10/19 24 09/11/2023 COMP. METAB OLIC PANEL (14) glucose 90 mg/dL 70-99 Not Available [facility] ([facility]) [address] [place], [address], 09/11/2023 09:14:48 09/10/19 24 09/11/2023 COMP. METAB OLIC PANEL (14) BUN 20 mg/dL 6-24 Not Available [facility] ([facility]) [address] [place], [address], 09/11/2023 09:14:48 09/10/19 24 09/11/2023 COMP. METAB OLIC PANEL (14) creatinine 0.74 mg/dL 0.57-1 .00 Not Available [facility] ([facility]) [address] [place], [address], 09/11/2023 09:14:48 09/10/19 24 09/11/2023 COMP. METAB OLIC PANEL (14) eGFR 97 mL/mi n/1.7 3 >59 Not Available [facility] ([facility]) [address] [place], [address], 09/11/2023 09:14:48 09/10/19 24 09/11/2023 COMP. METAB OLIC PANEL (14) BUN/creatini ne ratio 27 9-23 above high normal Not Available [facility] ([facility]) [address] [place], [address], 09/11/2023 09:14:48 09/10/19 24 09/11/2023 COMP. METAB OLIC PANEL (14) sodium 143 mmol/ L 134-14 4 Not Available [facility] ([facility]) [address] [place], [address], 09/11/2023 09:14:48 09/10/19 24 09/11/2023 COMP. METAB OLIC PANEL (14) potassium 4.7 mmol/ L 3.5-5. 2 Not Available [facility] ([facility]) [address] [place], [address], 09/11/2023 09:14:48 09/10/1909/11/2023 COMP. METAB OLIC PANEL (14) chloride 104 mmol/ L 96-106 Not Available [facility] ([facility]) [address] [place], [address], 09/11/2023 09:14:48 09/10/1909/11/2023 COMP. METAB OLIC PANEL (14) carbon dioxide, total 25 mmol/ L 20-29 Not Available [facility] ([facility]) [address] [place], [address], 09/11/2023 09:14:48 09/10/1909/11/2023 COMP. METAB OLIC PANEL (14) calcium 9.6 mg/dL 8.7-10 .2 Not Available [facility] ([facility]) [address] [place], [address], 09/11/2023 09:14:48 09/10/1909/11/2023 COMP. METAB OLIC PANEL (14) protein, total 7.3 g/dL 6.0-8. 5 Not Available [facility] ([facility]) [address] [place], [address], 09/11/2023 09:14:48 09/10/19 24 09/11/2023 COMP. METAB OLIC PANEL (14) albumin 4.5 g/dL 3.8-4. 9 Not Available [facility] ([facility]) [address] [facility], [place], [address], 09/11/2023 09:14:48 09/10/19 24 09/11/2023 COMP. METAB OLIC PANEL (14) globulin, total 2.8 g/dL 1.5-4. 5 Not Available [facility] ([facility]) [address] [facility], [place], [address], 09/11/2023 09:14:48 09/10/19 24 09/11/2023 COMP. METAB OLIC PANEL (14) A/G ratio 1.6 1.2-2. 2 Not Available [facility] ([facility]) [address] [place], [address], 09/11/2023 09:14:48 09/10/19 24 09/11/2023 COMP. METAB OLIC PANEL (14) bilirubin, total 0.4 mg/dL 0.0-1. 2 Not Available [facility] ([facility]) [address] [place], [address], 09/11/2023 09:14:48 09/10/19 24 09/11/2023 COMP. METAB OLIC PANEL (14) alkaline phosphatase 79 IU/L 44-121 Not Available [facility] ([facility]) [address] [place], [address], 09/11/2023 09:14:48 09/10/19 24 09/11/2023 COMP. METAB OLIC PANEL (14) AST (SGOT) 21 IU/L 0-40 Not Available [facility] ([facility]) [address] [place], [address], 09/11/2023 09:14:48 09/10/19 24 09/11/2023 COMP. METAB OLIC PANEL (14) ALT (SGPT) 18 IU/L 0-32 Not Available [facility] ([facility]) [address] [place], [address], 09/11/2023 09:14:48 09/10/1909/11/2023 HEMOG LOBIN A1C hemoglobin A1C 5.4 % 4.8-5. 6 Predi abete s: 5.7 - 6.4 Diabe camacho: >6.4 Glyce rachele contr ol for adult s with diabe camacho: <7.0 Not Available [facility] ([facility]) [address] [facility], [place], [address], 09/11/2023 09:14:49 09/10/1909/11/2023 CBC, PLATE LET, NO DIFFE RENTI AL WBC 4.2 x10e3 /uL 3.4-10 .8 Not Available [facility] ([facility]) [address] [facility], [place], [address], 09/11/2023 09:14:50 09/10/1909/11/2023 CBC, PLATE LET, NO DIFFE RENTI AL RBC 5.00 x10e6 /uL 3.77-5 .28 Not Available [facility] ([facility]) [address] [facility], [place], [address], 09/11/2023 09:14:50 09/10/1909/11/2023 CBC, PLATE LET, NO DIFFE RENTI AL hemoglobin 13.2 g/dL 11.1-1 5.9 Not Available [facility] ([facility]) [address] [facility], [place], [address], 09/11/2023 09:14:50 09/10/1909/11/2023 CBC, PLATE LET, NO DIFFE RENTI AL hematocrit 41.1 % 34.0-4 6.6 Not Available [facility] ([facility]) [address] [place], [address], 09/11/2023 09:14:50 09/10/1909/11/2023 CBC, PLATE LET, NO DIFFE RENTI AL MCV 82 fL 79-97 Not Available [facility] ([facility]) [address] [facility], [place], [address], 09/11/2023 09:14:50 09/10/1909/11/2023 CBC, PLATE LET, NO DIFFE RENTI AL MCH 26.4 pg 26.6-3 3.0 below low normal Not Available [facility] ([facility]) [address] [facility], [place], [address], 09/11/2023 09:14:50 09/10/1909/11/2023 CBC, PLATE LET, NO DIFFE RENTI AL MCHC 32.1 g/dL 31.5-3 5.7 Not Available [facility] ([facility]) [address] [facility], [place], [address], 09/11/2023 09:14:50 09/10/1909/11/2023 CBC, PLATE LET, NO DIFFE RENTI AL RDW 14.1 % 11.7-1 5.4 Not Available [facility] ([facility]) [address] [facility], [place], [address], 09/11/2023 09:14:50 09/10/1909/11/2023 CBC, PLATE LET, NO DIFFE RENTI AL platelets 156 x10e3 /uL 150-45 0 Not Available [facility] ([facility]) [address] [place], [address], 09/11/2023 09:14:50 09/10/1909/11/2023 VITAM IN D, 25-HY DROXY vitamin D, 25-hydroxy 46.2 NG/mL 30.0-1 00.0 Vitam in D defic iency has been defin ed by the Insti tute of Medic ine and an Endoc rine Socie ty pract ice guide line as a level of serum 25-OH vitam in D less than 20 ng/mL (1,2) . The Endoc rine Socie ty went on to [facility] defin e vitam in D insuf ficie ncy as a level betwe en 21 and 29 ng/mL (2). 1. IOM (Inst itute of Medic ine). 2010. Dieta ry refer ence intak es for calci um and D. Jere lynn [place]: The [facility] Press . 2. Brii mckeon MF, Elena ey [place], Bisdoreen off-F errar i JHA, et al. Evalu ation , treat ment, and preve ntion of vitam in D defic iency : an Endoc rine Socie ty clini meghna pract ice guide line. JCEM. 2010; 96(7) :1911 -30. Not Available [facility] ([facility]) [address] [facility], [place], [address], 09/11/2023 09:14:51 09/10/19 24 09/18/2023 COMPL IANCE DRUG ELIJAH SIS, UR summary report (summary) FINAL ===== ===== ===== ===== ===== ===== ===== ===== ===== ===== ===== ===== ===== === TOXAS SURE COMP DRUG ELIJAH SIS,U R ===== ===== ===== ===== ===== ===== ===== ===== ===== ===== ===== ===== ===== === Test Resul t Flag Units Drug Prese nt Ellington codon e 1488 ng/mg creat Ellington morph one 162 ng/mg creat Dihyd rocod eine 181 ng/mg creat Norhy droco done 1520 ng/mg creat Sourc es of hydro codon e inclu de sched uled presc ripti on medic ation s. Ellington morph one, dihyd rocod eine and norhy droco done are expec heidi metab olite s of hydro codon e. Ellington morph one and dihyd rocod eine are also avail able as sched uled presc ripti on medic ation s. Aceta minop hen PRESE NT Napro xen PRESE NT Chlor pheni nehemiah e PRESE NT Diphe nhydr amine PRESE NT ===== ===== ===== ===== ===== ===== ===== ===== ===== ===== ===== ===== ===== === Test Resul t Flag Units Ref Range Creat inine 130 mg/dL >=20 ===== ===== ===== ===== ===== ===== ===== ===== ===== ===== ===== ===== ===== === Decla red Medic ation s: Medic ation list was not provi ded. ===== ===== ===== ===== ===== ===== ===== ===== ===== ===== ===== ===== ===== === For clini meghna consu ltati on, pleas e call . ===== ===== ===== ===== ===== ===== ===== ===== ===== ===== ===== ===== ===== === Not Available [facility] ([facility]) [address] [facility], [place], [address], 09/18/2023 17:10:35 09/10/19 24 09/18/2023 COMPL IANCE DRUG ELIJAH SIS, UR pdf . Not Available [facility] ([facility]) [address] [facility], [place], [address], 09/18/2023 17:10:35 04/21/20 24 04/22/2024 LIPID PANEL cholesterol, total 169 mg/dL 100-19 9 Not Available [facility] ([facility]) [address] [place], [address], 04/22/2024 07:18:18 04/21/20 24 04/22/2024 LIPID PANEL triglyceride s 88 mg/dL 0-149 Not Available [facility] ([facility]) [address] [place], [address], 04/22/2024 07:18:18 04/21/20 24 04/22/2024 LIPID PANEL HDL cholesterol 52 mg/dL >39 Not Available [facility] ([facility]) [address] [place], [address], 04/22/2024 07:18:18 04/21/20 24 04/22/2024 LIPID PANEL VLDL cholesterol meghna 16 mg/dL 5-40 Not Available [facility] ([facility]) [address] [place], [address], 04/22/2024 07:18:18 04/21/20 24 04/22/2024 LIPID PANEL LDL chol calc ([facility]) 101 mg/dL 0-99 above high normal Not Available [facility] ([facility]) [address] [place], [address], 04/22/2024 07:18:18 04/21/20 24 04/21/2024 COMP. METAB OLIC PANEL (14) sodium 139 mmol/ L 134-14 4 Not Available [facility] ([facility]) [address] [place], [address], 04/22/2024 07:18:20 04/21/20 24 04/22/2024 COMP. METAB OLIC PANEL (14) glucose 93 mg/dL 70-99 Not Available [facility] ([facility]) [address] [place], [address], 04/22/2024 07:18:20 04/21/20 24 04/22/2024 COMP. METAB OLIC PANEL (14) BUN 18 mg/dL 6-24 Not Available [facility] ([facility]) [address] [place], [address], 04/22/2024 07:18:20 04/21/20 24 04/22/2024 COMP. METAB OLIC PANEL (14) creatinine 0.76 mg/dL 0.57-1 .00 Not Available [facility] ([facility]) [address] [place], [address], 04/22/2024 07:18:20 04/21/20 24 04/22/2024 COMP. METAB OLIC PANEL (14) eGFR 93 mL/mi n/1.7 3 >59 Not Available [facility] ([facility]) [address] [facility], [place], [address], 04/22/2024 07:18:20 04/21/20 24 04/22/2024 COMP. METAB OLIC PANEL (14) BUN/creatini ne ratio 24 9-23 above high normal Not Available [facility] ([facility]) [address] [place], [address], 04/22/2024 07:18:20 04/21/20 24 04/22/2024 COMP. METAB OLIC PANEL (14) potassium 4.6 mmol/ L 3.5-5. 2 Not Available [facility] ([facility]) [address] [place], [address], 04/22/2024 07:18:20 04/21/20 24 04/22/2024 COMP. METAB OLIC PANEL (14) chloride 101 mmol/ L 96-106 Not Available [facility] ([facility]) [address] [place], [address], 04/22/2024 07:18:20 04/21/20 24 04/22/2024 COMP. METAB OLIC PANEL (14) carbon dioxide, total 24 mmol/ L 20-29 Not Available [facility] ([facility]) [address] [place], [address], 04/22/2024 07:18:20 04/21/20 24 04/22/2024 COMP. METAB OLIC PANEL (14) calcium 9.7 mg/dL 8.7-10 .2 Not Available [facility] ([facility]) [address] [place], [address], 04/22/2024 07:18:20 04/21/20 24 04/22/2024 COMP. METAB OLIC PANEL (14) protein, total 7.1 g/dL 6.0-8. 5 Not Available [facility] ([facility]) [address] [place], [address], 04/22/2024 07:18:20 04/21/20 24 04/22/2024 COMP. METAB OLIC PANEL (14) albumin 4.5 g/dL 3.8-4. 9 Not Available [facility] ([facility]) [address] [place], [address], 04/22/2024 07:18:20 04/21/20 24 04/22/2024 COMP. METAB OLIC PANEL (14) globulin, total 2.6 g/dL 1.5-4. 5 Not Available [facility] ([facility]) [address] [place], [address], 04/22/2024 07:18:20 04/21/20 24 04/22/2024 COMP. METAB OLIC PANEL (14) bilirubin, total 0.6 mg/dL 0.0-1. 2 Not Available [facility] ([facility]) [address] [place], [address], 04/22/2024 07:18:20 04/21/20 24 04/22/2024 COMP. METAB OLIC PANEL (14) alkaline phosphatase 85 IU/L 44-121 Not Available [facility] ([facility]) [address] [facility], [place], [address], 04/22/2024 07:18:20 04/21/20 24 04/22/2024 COMP. METAB OLIC PANEL (14) AST (SGOT) 22 IU/L 0-40 Not Available [facility] ([facility]) [address] [facility], [place], [address], 04/22/2024 07:18:20 04/21/20 24 04/22/2024 COMP. METAB OLIC PANEL (14) ALT (SGPT) 18 IU/L 0-32 Not Available [facility] ([facility]) [address] [facility], [place], [address], 04/22/2024 07:18:20 04/21/20 24 04/21/2024 HEMOG LOBIN A1C hemoglobin A1C 5.4 % 4.8-5. 6 Predi abete s: 5.7 - 6.4 Diabe camacho: >6.4 Glyce rachele contr ol for adult s with diabe camacho: <7.0 Not Available [facility] ([facility]) [address] [facility], [place], [address], 04/22/2024 07:18:21 04/21/20 24 04/21/2024 CBC, PLATE LET, NO DIFFE RENTI AL WBC 5.0 x10e3 /uL 3.4-10 .8 Not Available [facility] ([facility]) [address] [facility], [place], [address], 04/22/2024 07:18:22 04/21/20 24 04/21/2024 CBC, PLATE LET, NO DIFFE RENTI AL RBC 5.12 x10e6 /uL 3.77-5 .28 Not Available [facility] ([facility]) [address] [facility], [place], [address], 04/22/2024 07:18:22 04/21/20 24 04/21/2024 CBC, PLATE LET, NO DIFFE RENTI AL hemoglobin 13.8 g/dL 11.1-1 5.9 Not Available [facility] ([facility]) [address] [facility], [place], [address], 04/22/2024 07:18:22 04/21/20 24 04/21/2024 CBC, PLATE LET, NO DIFFE RENTI AL hematocrit 43.2 % 34.0-4 6.6 Not Available [facility] ([facility]) [address] [facility], [place], [address], 04/22/2024 07:18:22 04/21/20 24 04/21/2024 CBC, PLATE LET, NO DIFFE RENTI AL MCV 84 fL 79-97 Not Available [facility] ([facility]) [address] [facility], [place], [address], 04/22/2024 07:18:22 04/21/20 24 04/21/2024 CBC, PLATE LET, NO DIFFE RENTI AL MCH 27.0 pg 26.6-3 3.0 Not Available [facility] ([facility]) [address] [facility], [place], [address], 04/22/2024 07:18:22 04/21/20 24 04/21/2024 CBC, PLATE LET, NO DIFFE RENTI AL MCHC 31.9 g/dL 31.5-3 5.7 Not Available [facility] ([facility]) [address] [facility], [place], [address], 04/22/2024 07:18:22 04/21/20 24 04/21/2024 CBC, PLATE LET, NO DIFFE RENTI AL RDW 13.5 % 11.7-1 5.4 Not Available [facility] ([facility]) [address] [facility], [place], [address], 04/22/2024 07:18:22 04/21/20 24 04/21/2024 CBC, PLATE LET, NO DIFFE RENTI AL platelets 155 x10e3 /uL 150-45 0 Not Available [facility] ([facility]) [address] [facility], [place], [address], 04/22/2024 07:18:22 04/21/20 24 04/22/2024 VITAM IN D, 25-HY DROXY vitamin D, 25-hydroxy 52.8 NG/mL 30.0-1 00.0 Vitam in D defic iency has been defin ed by the Insti tute of Medic ine and an Endoc rine Socie ty pract ice guide line as a level of serum 25-OH vitam in D less than 20 ng/mL (1,2) . The Endoc rine Socie ty went on to furth er defin e vitam in D insuf ficie ncy as a level betwe en 21 and 29 ng/mL (2). 1. IOM (Inst itute of Medic ine). 2010. Britni ry refer ence intak es for calci um and D. Jere lynn [place]: The [facility] Press . 2. Brii mckeon MF, Elena evans [place], Isabel off-F errcorie i JHA, et al. Evalu ation , treat ment, and preve ntion of vitam in D defic iency : an Endoc rine Socie ty clini meghna pract ice guide line. JCEM. 2010; 96(7) :1911 -30. Not Available [facility] ([facility]) [address] [facility], [place], [address], 04/22/2024 07:18:24 07/21/19 25 07/27/2024 COMPL IANCE DRUG ELIJAH SIS, UR summary report (summary) FINAL ===== ===== ===== ===== ===== ===== ===== ===== ===== ===== ===== ===== ===== === TOXAS SURE COMP DRUG ELIJAH SIS,U R ===== ===== ===== ===== ===== ===== ===== ===== ===== ===== ===== ===== ===== === Test Resul t Flag Units Drug Prese nt Ellington codon e 1482 ng/mg creat Ellington morph one 73 ng/mg creat Dihyd rocod eine 97 ng/mg creat Norhy droco done 1177 ng/mg creat Sourc es of hydro codon e inclu de sched uled presc ripti on medic ation s. Ellington morph one, dihyd rocod eine and norhy droco done are expec heidi metab olite s of hydro codon e. [place]ington morph one and dihyd rocod eine are also avail able as sched uled presc ripti on medic ation s. Aceta minop hen PRESE NT Napro xen PRESE NT Diphe nhydr amine PRESE NT Doxyl amine PRESE NT ===== ===== ===== ===== ===== ===== ===== ===== ===== ===== ===== ===== ===== === Test Resul t Flag Units Ref Range Creat inine 176 mg/dL >=20 ===== ===== ===== ===== ===== ===== ===== ===== ===== ===== ===== ===== ===== === Decla red Medic ation s: Medic ation list was not provi ded. ===== ===== ===== ===== ===== ===== ===== ===== ===== ===== ===== ===== ===== === For clini meghna consu ltati on, pleas e call . ===== ===== ===== ===== ===== ===== ===== ===== ===== ===== ===== ===== ===== === Not Available [facility] ([facility]) [address] [facility], [place], [address], 07/27/2024 13:14:31 07/21/19 25 07/27/2024 COMPL IANCE DRUG ELIJAH SIS, UR pdf . Not Available [facility] ([facility]) [address] [facility] [address], [place], [address], 07/27/2024 13:14:31 07/21/19 25 07/20/2024 urina lysis , dipst ick Leukocytes Trace Not Available In-Offi ce Order Internal Use Only DO Not Attach Compendium DO Not Attach Compendium, Do Not Delete/merge, 07/20/2024 14:20:58 07/21/19 25 07/20/2024 urina lysis , dipst ick Nitrite negati ve Not Available In-Office Order Internal Use Only DO Not Attach Compendium DO Not Attach Compendium, Do Not Delete/merge, 07/20/2024 14:20:58 07/21/19 25 07/20/2024 urina lysis , dipst ick Urobilinogen .2 Not Available In-Of fice Order Internal Use Only DO Not Attach Compendium DO Not Attach Compendium, Do Not Delete/merge, 07/20/2024 14:20:58 07/21/19 25 07/20/2024 urina lysis , dipst ick Protein Trace Not Available In-Office Order Internal Use Only DO Not Attach Compendium DO Not Attach Compendium, Do Not Delete/merge, 07/20/2024 14:20:58 07/21/19 25 07/20/2024 urina lysis , dipst ick pH 5.5 Not Available In-Office Order Internal Use Only DO Not Attach Compendium DO Not Attach Compendium, Do Not Delete/merge, 07/20/2024 14:20:58 07/21/19 25 07/20/2024 urina lysis , dipst ick Blood Negati ve Not Available In-Office Order Internal Use Only DO Not Attach Compendium DO Not Attach Compendium, Do Not Delete/merge, [id number] 07/20/2024 14:20:58 07/21/1907/20/2024 urina lysis , dipst ick Specific [place] 1.030 Not Available In-Off ice Order Internal Use Only DO Not Attach Compendium DO Not Attach Compendium, Do Not Delete/merge, 07/20/2024 14:20:58 07/21/19 25 07/20/2024 urina lysis , dipst ick Ketone Negati ve Not Available In-Office Order Internal Use Only DO Not Attach Compendium DO Not Attach Compendium, Do Not Delete/merge, 07/20/2024 14:20:58 07/21/1907/20/2024 urina lysis , dipst ick Bilirubin Negati ve Not Available In-Office Order Internal Use Only DO Not Attach Compendium DO Not Attach Compendium, Do Not Delete/merge, 07/20/2024 14:20:58 07/21/19 25 07/20/2024 urina lysis , dipst ick Glucose Negati ve Not Available In-Office Order Internal Use Only DO Not Attach Compendium DO Not Attach Compendium, Do Not Delete/merge, 07/20/2024 14:20:58 09/28/19 24 09/27/2023 MRI, brain + brain stem, w/wo contr ast No observ ation record ed. [address], [address], 10/06/2023 10:12:25 09/28/19 24 09/27/2023 MRI, cervi meghna spine , w/wo contr ast No observ ation record ed. [address], [address], 10/06/2023 10:12:49 09/28/19 24 09/27/2023 MRI, thora cic spine , w/wo contr ast No observ ation record ed. [address], [address], 10/06/2023 10:13:11 04/22/20 24 04/22/2024 XR, ankle No observ ation record ed. [facility] [address] [facility] [address], [place], [address], 06/03/2024 10:33:50 08/05/19 25 08/04/2024 XR, ankle No observ ation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 09:32:05 Hyperlipidemia 57448154 E78.5 Cont current management Low back pain 638327936 M54.50 Mood disorder 30107285 F 39 Multiple sclerosis 42847 007 G35 Osteoarthritis 321250285 M19.90 Review old chart for xrays and PT Sciatica 64934290 M54.31 Paresthesia of foot 3090 01042 R20.2 Right foot> Will see neuro in one week Pain of le ft hip joint 7644251405 22670 M25.552 Overweight 005403311 E66 .3 [id number] MD Deejay Daniel (Adult Med) [address] [place] [address] [id number] 0 01/29/2022 09:48:25 01/30/2022 11:03:37 Pain in right hip joint 3977578833 48270 M25.551 Hyperlipidemia 46097170 E78.5 Cont current management Vitamin D below reference range 389303464 E55.9 Multiple sclerosis 17786 007 G35 Osteoarthritis 838684396 M19.90 Review old chart for xrays and PT Overweight 770561478 E66 .3 Low back pain 346227155 M54.50 [id number] MD Deejay Daniel (Adult Med) [address] [place] [address] 75526-534 0 07/04/2022 14:39:10 07/10/2022 11:45:16 Insomnia 369320460 G47.00 Low back pain 302319514 M54.50 Eruption 277915033 R21 Nasal congestion 1378844 0 R09.81 [id number] MD Deejay Daniel (Adult Med) [address] [place] [address] [id number] 0 01/16/2023 10:01:19 01/17/2023 18:16:01 Obesity 060209808 E66.9 Hyperlipidemia 34104448 E78.5 Cont current management Multiple sclerosis 10306 007 G35 Sciatica 98445892 M54.31 Vitamin D below reference range 307804267 E55.9 Low back pain 153425524 M54.50 Anemia 662655780 D64.9 [id number] MD Deejay Daniel (Adult Med) [address] [place] [address] 06568-387 0 06/11/2023 11:06:24 06/16/2023 16:53:22 Obesity 549762778 E66.9 Low back pain 726041515 M54.50 Eruption 030359432 R21 Otitis externa 6120569 H 60.92 [id number] MD Deejay Daniel (Adult Med) [address] [place] [address] [id number] 0 08/05/2023 10:13:46 08/05/2023 17:49:40 Obesity 019868710 E66.9 Labs on return Low back pain 594354864 M54.50 Hyperlipidemia 16552771 E78.5 Has antonette off med [id number] MD Deejay Daniel (Adult Med) [address] [place] [address] [id number] 0 09/10/2023 10:00:09 09/11/2023 09:49:18 Obesity 941271344 E66.9 Labs on return Anemia 696850265 D64.9 Hyperlipidemia 20216784 E78.5 Has been off med. Will adjust statin as necessary Low back pain 107628280 M54.50 Multiple sclerosis 04604 007 G35 F/U neurology Sciatica 06825366 M54.31 Vitamin D below reference range 222483244 E55.9 Medication monitoring 39 1165550 Z51.81 Nasal congestion 9847304 0 R09.81 [id number] MD Deejay Daniel (Adult Med) [address] [place] [address] [id number] 0 01/22/2024 11:17:21 01/23/2024 15:14:43 Eruption 855233198 R21 tapering prednisone dose [id number] Rafael Storey MD Deejay HC (Adult Med) [address] [place] [address] [id number] 0 04/21/2024 09:50:56 04/22/2024 16:16:53 Low back pain 097605339 M54.50 Anemia 677597054 D64.9 Hyperlipidemia 30882271 E78.5 Multiple sclerosis 76571 007 G35 F/U neurology Obesity 796342021 E66.9 Labs on return Vitamin D below reference range 788347590 E55.9 Insomnia 712815106 G47.0 0 Trial zolpidem Elevated blood-pressure reading without diagnosis of hypertension 288924282 R03.0 Health Concerns Section Related Observation LastModified by Organization Detai ls LastModified Time None Recorded Concern Status LastModified by Organization Details LastModified Time None Recorded Advance Directives Directive None Recorded Payers Encounter Date Sequence Insurance Name Policy Number Policy Morales Covered Member ID Morales Member ID Guarantor Name 06/11/2023 [place]ICARE [place] - RHC - FQHC Gabby Tan [id number] Gabby Tan 06/11/2023 1 [facility] (MEDICARE REPLACEMENT/A DVANTAGE - HMO) [id number] Gabby Tan [id number] Gabby Britney 08/05/2023 1 [facility] (MEDICARE REPLACEMENT/A DVANTAGE - HMO) [id number] Gabby Britney [id number] Gabby Britney 09/10/2023 1 [facility] (MEDICARE REPLACEMENT/A DVANTAGE - HMO) [id number] Gabby Britney [id number] Gabby Britney 01/22/2024 1 [facility] (MEDICARE REPLACEMENT/A DVANTAGE - HMO) [id number] Gabby Britney [id number] Gabby Britney 04/21/2024 1 [facility] (MEDICARE REPLACEMENT/A DVANTAGE - HMO) [id number] Gabby Britney [id number] Gabby Britney Notes Date Note Type Note Provider Name and Address Organization Details Recorded Time 06/11/2023 text/html Here for check up. Noticed drainage from left ear Rafael Storey MD Attn: [facility],[address] [place], [address], [facility] 06/11/2023 12:08:14 08/05/2023 text/html BP has been running a little high in the past several weeks. She has also had headaches and insomnia. Sore throat in past two days. Hands feel cold at times Rafael Storey MD Attn: [facility],[address] [place], [address], [facility] 08/05/2023 11:10:46 09/10/2023 text/html Here for routine check up Rafael Storey MD Attn: [facility],[address] [place], [address], [facility] 09/10/2023 10:32:24 01/22/2024 text/html Here for routine check. exposed to poison CRUZITO two weeks ago. Treated with medrol one week ago. Rash continues to spread. Rafael Storey MD Attn: [facility],[address] [place], [address], [facility] 01/22/2024 11:58:13 04/21/2024 text/html Fell a couple days ago and hurt her back. BP has been high in the past year. She thinks her job might be stressful. Trazodone not as effective at present. Hurt left ankle four months ago and still is tender Rafael Storey MD Attn: [facility],[address] [place], [address], [facility] 04/21/2024 10:47:24 OBGyn Episode No OBEpisode recorded.
--- NOTE | 2024-08-04 15:28 | PC.NURSE ---
pt no longer wanted to wait, left and going to local UC for suture repair
== END 2024-08-04 16:32 | disposition left against medical advice (07) ==
LOC: ANHED 15:57
PROVIDERS: Emergency Provider Emergency Medicine; PCP Internal Medicine Gastroenterology
DX: S61.211A Laceration without foreign body of left index finger without damage to nail, initial encounter (principal); W26.9XXA Contact with unspecified sharp object(s), initial encounter; Y93.G1 Activity, food preparation and clean up
CPT/HCPCS: 73140; 99199

== ENCOUNTER 2024-09-06 13:47 | Outpatient (CLI) | payer MEDICARE, SELFPAY ==
[2024-09-06 14:18] LABS: Basophils Percent Auto 0.3 % (0.2-1.2); Eosinophils Percent Auto 0.4 % (0-4.4); Hematocrit 41.1 % (37.0-47.0); Hemoglobin 13.2 g/dL (12.0-15.0); Immature Granulocyte Absolute 0.02 K/mm3 (0.00-0.031); Immature Granulocyte Percent A 0.3 % (0-0.5); Lymphocytes Absolute Auto 1.31 K/mm3 (0.9-3.2); Lymphocytes Percent Auto 17.9 % (18.3-44.2); Mean Corpuscular HGB Conc 32.1 g/dl (32-36); Mean Platelet Volume 12.6 fl (7.4-10.4); Monocytes Absolute Auto 0.8 K/mm3 (0.1-0.6); Monocytes Percent Auto 10.4 % (2.6-8.5); Neutrophils Absolute Auto 5.2 K/mm3 (1.3-6.7); Neutrophils Percent Auto 70.7 % (45.5-73.1); Platelet Count Result 147 k/mm3 (150-375); Red Blood Count 4.89 M/mm3 (4.2-5.4); Red Cell Distribution Width 13.4 % (11.5-14.5); White Blood Count 7.3 K/mm3 (4.5-10.0)
[2024-09-06 14:30] LABS: Alanine Aminotransferase 18 U/L (6-35); Albumin Level 4.4 g/dL (3.5-5.1); Alkaline Phosphatase 91 U/L (38-126); Anion Gap 10 mmol/L (4-12); Aspartate Amino Transferase 24 U/L (14-36); Bilirubin,Total 0.8 mg/dL (0.2-1.3); Blood Urea Nitrogen 21 mg/dL (7-17); Calcium 9.2 mg/dL (8.4-10.2); Carbon Dioxide 26 mmol/L (22-30); Chloride 102 mmol/L (98-107); Estimated Glomerular Filt Rate > 60; Glucose 104 mg/dL (65-110); Potassium 4.2 mmol/L (3.4-5.0); Sodium 138 mmol/L (137-145)
--- OUTSIDE RECORDS SUMMARY | 2024-09-06 15:37 | XMS_ITS | Data Portability ---
Author Organization [facility] Address [address] [place] [address] Care Team Providers Care Die Cleaner Name Role Phone DAO STOREY Primary Care Provider [phone] Assessment No assessment recorded. Plan of Treatment Reminders Order Date Submit Date Provider Last Modified By Organization Details Last Modified Time Details Appointments None recorded. Lab TSH, serum or plasma [address] [facility] (Lab), [address] [place], [address], 19:32:49 vitamin D, 25-hydroxy, total, serum [address] [facility] (Lab), [address] [place], [address], 19:32:50 CMP, serum or plasma [address] [facility] (Lab), [address] [place], [address], 1 19:32:49 CBC w/ auto diff 2020 [facility] (Lab), [address] [place], [address], 1 19:32:48 lipid panel, blood 2020 [facility] (Lab), [address] [place], [address], 1 19:32:48 pap, IG + HR HPV - HPV regardless but if HPV is positive need subtyping 16,18/[address] [facility] (Lab), [address], [place], [address], 1 15:40:23 unlisted lab - 17-oh progesteron e, lc/MS/MS 2020 [facility] (Lab), [address], [place], [address], 1 19:32:52 dhea-sulfat e, serum 2020 [facility] (Lab), [address], [place], [address], 1 19:32:48 hormone panel, serum or plasma 2020 [facility] (Lab), [address], [place], [address], 1 19:32:51 HbA1c (hemoglobin A1c), blood 2020 [facility] (Lab), [address], [place], [address], 1 19:32:51 progesteron e, serum 2020 [facility] (Lab), [address], [place], [address], 1 19:32:50 prolactin, serum 2020 [facility] (Lab), [address], [place], [address], 1 19:32:51 shbg (sex hormone-bin ding globulin), serum 2020 [facility] (Lab), [address], [place], [address], 19:32:50 testosteron e free/testos terone total, ratio, serum 2020 [facility] (Lab), [address] [facility], [place], [address], 19:32:52 Referral None recorded. Procedures None recorded. Surgeries None recorded. Imaging MAMMO, screening, digital, bilateral 2020 [email or web address] [facility], [address], [place], [address], 10:47:41 US, pelvis, complete 2020 [email or web address] [facility], [address], [address], [place], [address], 15:37:30 Medication Orders None recorded. Patient TargetsNo [...] as clini jessica haines nted. Not Available [facility] (Lab) [address] [facility] [address], [place], [address], 11/08/2020 10:37:49 11/07/19 21 11/06/2020 CBC W/DIF F WBC 4.3 10'3/ uL 3.6-[address] [facility] (Lab) [address] [facility], [place], [address], 11/12/2020 19:32:48 11/07/19 21 11/06/2020 CBC W/DIF F RBC 4.90 10'6/ uL (based on docume nted legal sex) 4.10-[address] [facility] (Lab) [address] [facility], [place], [address], 11/12/2020 19:32:48 11/07/19 21 11/06/2020 CBC W/DIF F HGB 11.2 g/dL (based on docume nted legal sex) 11.9-1 5[address] [facility] (Lab) [address] [facility], [place], [address], 11/12/2020 19:32:48 11/07/19 21 11/06/2020 CBC W/DIF F HCT 39.5 % (based on docume nted legal sex) 37.4-[address] [facility] (Lab) [address] [facility], [place], [address], 11/12/2020 19:32:48 11/07/19 21 11/06/2020 CBC W/DIF F MCV 81.0 fL 82.0-9 9[address] [facility] (Lab) [address] [place], [address], 11/12/2020 19:32:48 11/07/19 21 11/06/2020 CBC W/DIF F MCH 23.0 pg 27.0-3 3[address] [facility] (Lab) [address], [place], [address], 11/12/2020 19:32:48 11/07/19 21 11/06/2020 CBC W/DIF F MCHC 28.0 g/dL 32.0-3 [address] [facility] (Lab) [address], [place], [address], 11/12/2020 19:32:48 11/07/19 21 11/06/2020 CBC W/DIF F RDW 17.0 % 11.0-1 5[address] [facility] (Lab) [address], [place], [address], 11/12/2020 19:32:48 11/07/19 21 11/06/2020 CBC W/DIF F plt 164 10'3/ uL 150-[address] [facility] (Lab) [address], [place], [address], 11/12/2020 19:32:48 11/07/19 21 11/06/2020 CBC W/DIF F MPV 12.[address] [facility] (Lab) [address], [place], [address], 11/12/2020 19:32:48 11/07/19 21 11/06/2020 CBC W/DIF F NRBC's 0.00 % [address] [facility] (Lab) [address], [place], [address], 11/12/2020 19:32:48 11/07/19 21 11/06/2020 CBC W/DIF F absolute NRBCs 0.0 10'3/ uL [address] [facility] (Lab) [address] [place], [address], 11/12/2020 19:32:48 11/07/19 21 11/06/2020 CBC W/DIF F neutrophils 59.0 % 37.0-[address] [facility] (Lab) [address], [place], [address], 11/12/2020 19:32:48 11/07/19 21 11/06/2020 CBC W/DIF F lymphocytes 27.0 % 16.0-[address] [facility] (Lab) [address] [facility], [place], [address], 11/12/2020 19:32:48 11/07/19 21 11/06/2020 CBC W/DIF F monocytes 9.0 % 4.0-[address] [facility] (Lab) [address], [place], [address], 11/12/2020 19:32:48 11/07/19 21 11/06/2020 CBC W/DIF F eosinophils 4.0 % 0.0-9. [address] [facility] (Lab) [address] [facility], [place], [address], 11/12/2020 19:32:48 11/07/19 21 11/06/2020 CBC W/DIF F basophils 1.0 % 0.0-2. [address] [facility] (Lab) [address] [place], [address], 11/12/2020 19:32:48 11/07/19 21 11/06/2020 CBC W/DIF F immature granulocytes 0.0 % no define d refere nce range Not Available [facility] (Lab) [address] [place], [address], 11/12/2020 19:32:48 11/07/19 21 11/06/2020 CBC W/DIF F absolute neutrophils 2.6 10'3/ uL 1.1-6. [address] [facility] (Lab) [address] [place], [address], 11/12/2020 19:32:48 11/07/19 21 11/06/2020 CBC W/DIF F absolute lymphocytes 1.2 10'3/ uL 0.7-3. [address] [facility] (Lab) [address] [facility], [place], [address], 11/12/2020 19:32:48 11/07/19 21 11/06/2020 CBC W/DIF F absolute monocytes 0.4 10'3/ uL 0.3-1. [address] [facility] (Lab) [address] [facility], [place], [address], 11/12/2020 19:32:48 11/07/19 21 11/06/2020 CBC W/DIF F absolute eosinophils 0.2 10'3/ uL 0.0-0. [address] [facility] (Lab) [address] [facility], [place], [address], 11/12/2020 19:32:48 11/07/19 21 11/06/2020 CBC W/DIF F absolute basophils 0.0 10'3/ uL 0.0-0. [address] [facility] (Lab) [address] [facility], [place], [address], 11/12/2020 19:32:48 11/07/19 21 11/06/2020 CBC W/DIF [...] resul ts are expec heidi. Not Available [facility] (Lab) [address] [facility], [place], [address], 11/12/2020 19:32:48 11/07/19 21 11/06/2020 DHEA SULFA TE DHEA-sulfate 85 ug/dL Femal e Range s Age(y ) Range (ug/d L) 10-15 34-28 0 15-20 65-36 8 20-25 148-4 07 25-35 99-34 0 35-45 61-33 7 45-55 35-25 6 55-65 19-20 5 65-75 9-246 > 75 12-[address] [facility] (Lab) [address] [place], [address], 11/12/2020 19:32:48 11/07/19 21 11/06/2020 LIPID PANEL ,AMA (LDL- CALC) total cholesterol 217 mg/dL 0-199 high Not Available [facility] (Lab) [address] [place], [address], 11/12/2020 19:32:48 11/07/19 21 11/06/2020 LIPID PANEL ,AMA (LDL- CALC) triglyceride s 118 mg/dL 0.00-1 50.00 NCEP Refer ence Value s for Trigl yceri gordy: Vanesa l: <150 mg/dL Borde rline High: 150 - 199 mg/dL High: 200 - 499 mg/dL Very High: >/= 500 mg/dL Not Available [facility] (Lab) [address] [place], [address], 11/12/2020 19:32:48 11/07/19 21 11/06/2020 LIPID PANEL ,AMA (LDL- CALC) HDL cholesterol 48 mg/dL 23-92 Not Available [facility] (Lab) [address] [place], [address], 11/12/2020 19:32:48 11/07/19 21 11/06/2020 LIPID PANEL [...] mg/dL , HDL <40 mg/dL Not Available [facility] (Lab) [address] [place], [address], 11/12/2020 19:32:48 11/07/19 21 11/06/2020 LIPID PANEL ,AMA (LDL- CALC) non-HDL cholesterol 169 mg/dL no refere nce range A reaso nable goal for non-H DL delia stero l is one that is 30 mg/dL highe r than the LDL delia stero l goal. Not Available [facility] (Lab) [address] [facility], [place], [address], 11/12/2020 19:32:48 11/07/19 21 11/06/2020 LIPID PANEL ,AMA (LDL- CALC) chol/HDL ratio 4.5 . 0.0-5. [address] [facility] (Lab) [address] [facility], [place], [address], 11/12/2020 19:32:48 11/07/19 21 11/06/2020 CMP(C OMPRE HENSI VE METAB OLIC PANEL ) sodium 140 mmol/ L 136-[address] [facility] (Lab) [address] [place], [address], 11/12/2020 19:32:49 11/07/19 21 11/06/2020 CMP(C OMPRE HENSI VE METAB OLIC PANEL ) potassium 3.9 mmol/ L 3.5-5. [address] [facility] (Lab) [address] [place], [address], 11/12/2020 19:32:49 11/07/19 21 11/06/2020 CMP(C OMPRE HENSI VE METAB OLIC PANEL ) chloride 105 mmol/ L 98-[address] [facility] (Lab) [address] [place], [address], 11/12/2020 19:32:49 11/07/19 21 11/06/2020 CMP(C OMPRE HENSI VE METAB OLIC PANEL ) carbon dioxide 26 mmol/ L 21- Not Available [facility] (Lab) [address], [place], [address], 11/12/2020 19:32:49 11/07/19 21 11/06/2020 CMP(C OMPRE HENSI VE METAB OLIC PANEL ) anion gap 9 mmol/ L 4-[address] [facility] (Lab) [address], [place], [address], 11/12/2020 19:32:49 11/07/19 21 11/06/2020 CMP(C OMPRE HENSI VE METAB OLIC PANEL ) blood urea nitrogen 17 mg/dL 7-25 Not Available [facility] (Lab) [address], [place], [address], 11/12/2020 19:32:49 11/07/19 21 11/06/2020 CMP(C OMPRE HENSI VE METAB OLIC PANEL ) creatinine 0.87 mg/dL 0.60-[address] [facility] (Lab) [address], [place], [address], 11/12/2020 19:32:49 11/07/19 21 11/06/2020 CMP(C OMPRE HENSI VE METAB OLIC PANEL ) GFR () 84 mL/mi n/1.7 3_m2 60-[address] [facility] (Lab) [address], [place], [address], 11/12/2020 19:32:49 11/07/19 21 11/06/2020 CMP(C OMPRE HENSI VE METAB OLIC PANEL ) GFR (others) 69 mL/mi n/1.7 3_m2 60-[address] [facility] (Lab) [address], [place], [address], 11/12/2020 19:32:49 11/07/19 21 11/06/2020 CMP(C OMPRE HENSI VE METAB OLIC PANEL ) calcium 8.9 mg/dL 8.6-[address] [facility] (Lab) [address] [facility], [place], [address], 11/12/2020 19:32:49 11/07/19 21 11/06/2020 CMP(C OMPRE HENSI VE METAB OLIC PANEL ) glucose 84 mg/dL 70-[address] [facility] (Lab) [address] [facility], [place], [address], 11/12/2020 19:32:49 11/07/19 21 11/06/2020 CMP(C OMPRE HENSI VE METAB OLIC PANEL ) protein, total 7.2 g/dL 6.4-8. [address] [facility] (Lab) [address] [facility], [place], [address], 11/12/2020 19:32:49 11/07/19 21 11/06/2020 CMP(C OMPRE HENSI VE METAB OLIC PANEL ) albumin 4.3 g/dL 3.5-5. [address] [facility] (Lab) [address] [facility], [place], [address], 11/12/2020 19:32:49 11/07/19 21 11/06/2020 CMP(C OMPRE HENSI VE METAB OLIC PANEL ) ALT 10 units /L 9-[address] [facility] (Lab) [address] [facility], [place], [address], 11/12/2020 19:32:49 11/07/19 21 11/06/2020 CMP(C OMPRE HENSI VE METAB OLIC PANEL ) alkaline phosphatase 45 units /L 34-[address] [facility] (Lab) [address] [facility], [place], [address], 11/12/2020 19:32:49 11/07/19 21 11/06/2020 CMP(C OMPRE HENSI VE METAB OLIC PANEL ) AST 14 units /L 13-[address] [facility] (Lab) [address] [place], [address], 11/12/2020 19:32:49 11/07/19 21 11/06/2020 CMP(C OMPRE HENSI VE METAB OLIC PANEL ) bilirubin, total 0.4 mg/dL 0.2-1. [address] [facility] (Lab) [address] [place], [address], 11/12/2020 19:32:49 11/07/19 21 11/06/2020 TSH TSH 0.67 uIU/m L 0.30-[address] [facility] (Lab) [address] [facility], [place], [address], 11/12/2020 19:32:49 11/07/19 21 11/06/2020 HUMAN SEX HORMO NE MAYNOR NG GLOBU TIEN sex hormone binding globulin 59.0 nmole s/L 16.8-[address] [facility] (Lab) [address] [place], [address], 11/12/2020 19:32:49 11/07/19 21 11/06/2020 VITAM IN D, 25-OH (TOTA L D2/D3 ) vitamin D, 25-hydroxy, total 52.5 NG/mL 30-80 NOTE: Defic iency : <20 ng/mL Insuf ficie ncy: 20-29 ng/mL Optim um Level : 30-80 ng/mL Possi ble Toxic ity: >80 ng/mL Most patie nts with toxic ity have level s >150 ng/mL . Not Available [facility] (Lab) [address] [place], [address], 11/12/2020 19:32:50 11/07/19 21 11/06/2020 PROGE STERO NE progesterone 0.07 NG/mL 0.05-< 60.00 This assay was perfo rmed using [employer] ratio n reage nts and test kits. Value s obtai katharine with other assay metho ds or kits canno t be used inter [facility] . Femal e Proge stero ne Range s: Folli cular phase 0.06- 0.89 ng/mL Ovula tion phase 0.12- 12.00 ng/mL Lutea l phase 1.83- 23.90 ng/mL Postm enopa usal< 0.05- 0.13 ng/mL Healt hy Pregn ant Women 1st Trime ster1 1.0-4 4.30 2nd Trime ster2 5.40- 83.30 3rd Trime ster5 8.70- 214.[address] [facility] (Lab) [address] [place], [address], 11/12/2020 19:32:50 11/07/19 21 11/06/2020 PROLA CTIN prolactin, total 14.60 NG/mL 4.79-2 3.30 This assay was perfo rmed using [employer] reage nts and test kits. Value s obtai katharine with other assay metho ds or kits canno t be used inter [facility] . Not Available [facility] (Lab) [address], [place], [address], 11/12/2020 19:32:50 11/07/19 21 11/06/2020 FSH, LH, ESTRA DIOL estradiol 9.2 pg/mL This assay was perfo rmed using [employer] n reage nts and test kits. Value s obtai katharine with other assay metho ds or kits canno t be used inter [facility] . Femal e Estra diol Range s: Folli cular phase 12.4- 233 pg/mL Ovula tion phase 41.0- 398 pg/mL Lutea l phase 22.3- 341 pg/mL Postm enopa usal< 5-138 pg/mL Healt hy Pregn ant Women 1st Trime ster1 54-32 43 pg/mL 2nd Trime ster1 561-2 1280 pg/mL 3rd Trime ster8 525-> 06036 pg/mL Not Available [facility] (Lab) [address] [facility], [place], [address], 11/12/2020 19:32:51 11/07/1911/06/2020 FSH, LH, ESTRA DIOL [...] use: 25.8- 134.8 mIU/m L Not Available [facility] (Lab) [address] [facility], [place], [address], 11/12/2020 19:32:51 11/07/19 21 11/06/2020 FSH, LH, [...] use: 7.7-5 8.5 mIU/m L Not Available [facility] (Lab) [address] [facility], [place], [address], 11/12/2020 19:32:51 11/07/1911/06/2020 HEMOG LOBIN A1C hemoglobin [...] py >8.0% Actbrittney hu sted Not Available [facility] (Lab) [address] [facility] [facility], [place], [address], 11/12/2020 19:32:51 11/07/1911/06/2020 TESTO STERO NE, FREE( DIALY SIS) AND TOTAL (LC/M S/MS) testosterone , total 28 NG/dL 2-45 For addit ional infor erica gambino e refer to http: //[facility] dixie gimenez.que stdia gnost ics.c om/fa [...] for clini meghna purpo ses. Not Available [facility] (Lab) [address] [place], [address], 11/12/2020 19:32:52 11/07/1911/06/2020 TESTO STERO NE, FREE( [...] Name: [facility] [facility] Addre ss: [id number] [place] [address] Direc tor: Basim alcaraz M.D. Not Available [facility] (Lab) [address] [facility], [place], [address], 11/12/2020 19:32:52 11/07/19 21 11/06/2020 17-OH PROGE [...] Diagn ostic s [facility] [place] . It has not been clear ed or appro joshua by FDA. This assay has been valid ated pursu ant to the CLIA regul ation s and is used for clini meghna purpo ses. Perfo rming Organ izati on Infor matio n: Site ID: [id number] Name: [facility] [place] [facility] [place] , Addre ss: [id number] [place] [address] Direc tor: Marlene yadav MD,Ph D,MIKO Not Available [facility] (Lab) [address] [facility], [place], [address], 11/12/2020 19:32:52 Result Notes None recorded. Procedures Surgical History Date Name Laterality Status Provider Name and Address Organization Details Recorded Time 3 Date of Last Mammogram completed [facility] 11/06/2020 10:55:39 3 completed [facility] 11/06/2020 10:56:39 3 Carpal tunnel surgery completed [facility] 11/06/2020 11:00:30 5 Date of Last Pap Smear completed [facility] 11/06/2020 10:54:49 Imaging Results None recorded. [...] Last Updated DateTime 170.18 cm 28.7 kg/m2 72164.4 g 147 mm[Hg] 87 mm[Hg] 149 mm[Hg] 87 mm[Hg] Aleah Jamesan [facility] 10:52:52 Social History Question Answer Notes LastModified by Organizat ion Details LastModified Time Tobacco Smoking Status Never Smoker Aleahbradley Paez [facility] 11/06/2020 10:59:56 What Is Your Level Of Alcohol Consumption? None [email or web address] Information not available 11/06/2020 Are You Blind Or Do You Have Difficulty Seeing? No Information not available 11/06/2020 What Is Your Level Of Caffeine Consumption? Occasional [email or web address] Information not available 11/06/2020 Are You Deaf Or Do You Have Serious Difficulty Hearing? No Information not available 11/06/2020 How Many Days Of Moderate To Strenuous Exercise, Like A Brisk Walk, Did You Do In The Last 7 Days? 7 [email or web address] Information not available 11/06/2020 Sex: Unknown Functional Status Question Answer Note LastModified by Organization D etails LastModified Time Are you able to walk? YESWOREST [email or web address] Information not available 11/06/2020 What is your exercise level? Moderate [email or web address] Information not available 11/06/2020 Mental Status None recorded. Family History Relationship Description Onset Age of this Age Resolved Age Notes LastModified by Organization Details LastModified Time Father Hyperlipidem ia [email or web address] Not available 2020 10:57:57 Father Hypertensive disorder [email or web address] Not available 2020 10:58:20 Paternal Grandmother Heart disease [email or web address] Not available 2020 10:58:47 Paternal Grandfather Hypertensive disorder [email or web address] Not available 2020 10:59:12 Paternal Aunt Diabetes mellitus [email or web address] Not available 2020 10:59:27 Medical History Condition [...] SNOMED-CT Code Diagnosis ICD10 Code Diagnosis Note [id number] Aleah Borrero [place] [address] [address] 11/06/2020 10:23:16 11/07/2020 15:38:28 Abnormal uterine bleeding [id number] 9100 N93.9 Discussed possible causes of abnormal bleeding and that treatment would be discussed at follow up visit along with lab and u/s. Did briefly discuss possible emb. Pt will schedule follow up prior to leaving today. Gynecologi c examination [id number] Z01.419 Z11.51 Take Calcium with Vitamin D 12-1500mg daily. Do monthly self breast exams. It is advised to get annual flu shot in the fall and she could obtain at [facility] or [facility] care clinic. If you haven't received [...] Name 11/06/2020 1 MEDICARE-MD (MEDICARE) Gabby Tan [id number] Gabby Tan 11/06/2020 2 MEDICAID-MD: [facility] Gabby Tan [id number] Gabby Tan Notes Date Note Type Note [...] cycles were monthly and normal. Aleah Borrero [facility] 11/14/2020 20:17:03 OBGyn Episode Ob Episode Information Episode Created Date Number of Fetuses Patient Bloodtype Patient rh Status Prepregnancy Weight lbs Domestic Partner Domestic Partner Phone Father Name Wellness Program Administrator Status 11/07/19 21 1 CLOSED Fetus Data First Name Last Name Admitted to NICU Weight (g) Sex Living Outcome Pediatric Complications Fetus ID Race Codes Race Delivery Type 3628.73 6 F Full Term 18846 Vaginal Delivery Vickey Calculation Initial Vickey Date [...] Domestic Partner Domestic Partner Phone Father Name Wellness Program Administrator Status 11/07/19 21 1 CLOSED Fetus Data First Name Last Name Admitted to NICU Weight (g) Sex Living Outcome Pediatric Complications Fetus ID Race Codes Race Delivery Type 3883.65 4704 F Full Term 24914 Vaginal Delivery Vickey Calculation Initial Vickey Date Initial Exam Date Initial Exam Provider Initial Ultrasound Date Last Menstrual Period Date Ultra Sound Weeks Gestation 0 Eighteen To Twenty Week Vickey Update Ultra Sound Date Fundal Height At Umbil Quickening Date Ultra Sound Latest Weeks Gestation Final Vickey Confirmed By Final Vickey Confirmed Date Final Vcikey Date Ultra Sound Latest Days Gestation 0 [...]
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
== END 2024-09-06 13:48 | disposition home or self-care (01) ==
PROVIDERS: PCP Internal Medicine Gastroenterology; Visit Provider Psychiatry & Neurology Neurology
DX: E55.9 Vitamin D deficiency, unspecified (principal); G35 Multiple sclerosis
CPT/HCPCS: 36415; 80053; 82652; 85025

== ENCOUNTER 2024-12-14 09:58 | Outpatient (CLI) | payer MEDICARE, SELFPAY ==
[2024-12-14 11:36] LABS: Cholesterol 173 mg/dL (0-200); HDL Direct 50 mg/dL; Triglycerides 111 mg/dL (<150)
[2024-12-14 11:51] LABS: Hemoglobin A1C 5.2 % (<5.7)
[2024-12-15 16:08] LABS: Cocaine (Metab.), Urine Negative ng/mL (Cutoff=300)
== END 2024-12-14 09:59 | disposition home or self-care (01) ==
PROVIDERS: PCP Nurse Practitioner Family; Visit Provider Nurse Practitioner Family
DX: E78.5 Hyperlipidemia, unspecified (principal); Z79.891 Long term (current) use of opiate analgesic; Z13.1 Encounter for screening for diabetes mellitus; E66.811 Obesity, class 1
CPT/HCPCS: 36415; 80061; 83036